=== PATIENT | male | born 1980 | race African-American/Black ===

== ENCOUNTER 2019-02-03 09:51 | Inpatient (IN) | payer OTHER ==
[2019-02-03] MEDS ORDERED: SODIUM CHLORIDE 1,000 ML IV STA ×2 (10:37→11:49)
[2019-02-03] MEDS ORDERED: KETOROLAC TROMETHAMINE 30 MG/1 ML VIAL IVPUSH ONE (10:37)
[2019-02-03] MEDS ORDERED: PANTOPRAZOLE SODIUM 40 MG in SODIUM CHLORIDE 100 ML IVPB ONE (10:40)
--- NOTE | 2019-02-03 10:51 | PDOC ---
*Physical Exam - Vital Signs Last Vital Signs Temp Pulse Resp BP Pulse Ox 98.2 F 93 H 16 127/80 98 02/03/19 09:53 02/03/19 09:53 02/03/19 09:53 02/03/19 09:53 02/03/19 09:53 ED Treatment Course - LABORATORY CBC & Chemistry Diagram: 02/04/19 05:53 02/04/19 05:53 Medical Decision Making - Critical Care Time Total Critical Care Time (minutes): 120 Critical Care Statement: The care of this patient involved high complexity decision making to prevent further life threatening deterioration of the patient 's condition and/or to evaluate & treat vital organ system(s) failure or risk of failure. - Medical Decision Making 02/03/19 10:51 Mr. Power is a 38 yo M h/o pancreatitis and diabetes (not compliant with medications) who presents to ED for evaluation of upper abdominal pain which she states has had for about a week. Patient also states has been drinking alcohol socially and has had no change in diet. No fevers or chills No vomiting EKG - NSR rate of 91 bpm, RAD, RBBB, no st elevation or depression Pt seen by Midlevel Provider under my direct supervision Pt interviewed and examined Pt is overall well appearing, Ancillary studies reviewed I agree with plan as outlined by Midlevel Provider 02/03/19 13:00 Laboratory Tests 02/03/19 02/03/19 10:55 10:55 WBC 10.5 H Hgb 15.1 Hct 35.7 Plt Count 282 Sodium 128 L Potassium 4.1 Chloride 93 L BUN 8.9 Creatinine 1.1 Total Amylase 136 H Lipase 519 H 02/03/19 13:01 Added on Lipid panel and Triglycerides 02/03/19 13:03 02/03/19 16:19 Laboratory Tests 02/03/19 12:30 Triglycerides > 4000 H Will need to go to the ICU Case reviewed with ICU resident Will start Insulin drip Consult Heme for possible plasmaphresis clinical impression: Hypertriglyceridemia, initial presentation Pancreatitis, initial presentation DKA/hyperglycemia, initial presentation Discharge - Discharge Information Problems reviewed: Yes Clinical Impression/Diagnosis: Elevated triglycerides with high cholesterol - Follow up/Referral - Patient Discharge Instructions - Post Discharge Activity
[2019-02-03] MEDS ORDERED: KETOROLAC TROMETHAMINE 30 MG/1 ML VIAL ONE (11:01)
[2019-02-03] MEDS ORDERED: PANTOPRAZOLE SODIUM 40 MG/100 ML BAG IVPB ONE (11:01)
[2019-02-03 11:42] LABS: ALK PHOS 119 U/L (45-117); AMYLASE 136 U/L (25-115); ANION GAP 14 MMOL/L (8-16); BILIRUBIN,TOTAL 1.9 mg/dL (0.2-1); BLOOD UREA NITROGEN 8.9 mg/dL (7-18); CHLORIDE 93 mmol/L (98-107); CO2 21 mmol/L (21-32); CREATININE 1.1 mg/dL (0.55-1.3); LIPASE 519 U/L (73-393); MAGNESIUM 1.9 mg/dL (1.8-2.4); POTASSIUM 4.1 mmol/L (3.5-5.1); SODIUM 128 mmol/L (136-145); TOT PROT 7.9 g/dl (6.4-8.2)
[2019-02-03 11:47] LABS: HEMATOCRIT 35.7 % (35.4-49); HEMOGLOBIN 15.1 GM/dL (11.7-16.9); MCH 30.8 pg (25.7-33.7); MCHC 42.3 g/dl (32.0-35.9); MEAN CELL VOLUME 72.9 fl (80-96); MEAN PLT VOLUME 8.6 fl (7.5-11.1); RDW 17.1 % (11.9-15.9); WHITE BLOOD COUNT 10.5 K/mm3 (4.0-10.0)
--- NOTE | 2019-02-03 11:57 | PDOC ---
History of Present Illness - General Chief Complaint: Pain, Acute Stated Complaint: PAIN Time Seen by Provider: 02/03/19 10:33 History Source: Patient Exam Limitations: No Limitations - History of Present Illness Travel History: No Initial Comments: 02/03/19 11:45 38-year-old male with history of pancreatitis and diabetes presents to ED for evaluation of upper abdominal pain which she states has had for about a week. Patient states similar symptoms in the past secondary to pancreatitis. Patient states has not had any of his diabetic meds for the past 2 weeks since he ran out.Patient also states has been drinking alcohol socially and has had no change in diet. Patient denies fever, chills, nausea, back pain, change in bowel pattern, change in urine pattern. Quality: reports: moderate, stabbing Abdominal Pain Onset Location: reports: epigastric Pain Radiation: reports: RUQ Activities at Onset: reports: none Aggravating Factors: improves with: None Alleviating Factors: improves with: None Past History - Travel Traveled outside of the country in the last 30 days: No Close contact w/someone who was outside of country & ill: No - Past Medical History Allergies/Adverse Reactions: Allergies Allergy/AdvReac Type Severity Reaction Status Date / Time No Known Allergies Allergy Verified 02/03/19 09:56 COPD: No Diabetes: Yes GI Disorders: Yes (PANCREATITIS) - Psycho Social/Smoking Cessation Hx Smoking History: Current every day smoker Number of Cigarettes Smoked Daily: 20 Information on smoking cessation initiated: No Hx Alcohol Use: No Drug/Substance Use Hx: No Patient Lives Alone: No Lives with/in: spouse/SO Abd/GI Specific PMHX - Complaint Specific PMHX GERD: No Pancreatitis: Yes Review of Systems - Review of Systems Able to Perform ROS?: Yes Constitutional: No: Symptoms Reported HEENTM: No: Symptoms Reported Respiratory: No: Symptoms reported Cardiac (ROS): No: Symptoms Reported ABD/GI: Yes: Abdominal cramping. No: Nausea, Poor Appetite, Poor Fluid Intake, Vomiting : No: Symptoms Reported Musculoskeletal: No: Symptoms Reported Integumentary: No: Symptoms Reported Neurological: No: Symptoms reported Endocrine: No: Symptoms Reported Hematologic/Lymphatic: No: Symptoms Reported *Physical Exam - Vital Signs Last Vital Signs Temp Pulse Resp BP Pulse Ox 98.2 F 93 H 16 127/80 98 02/03/19 09:53 02/03/19 09:53 02/03/19 09:53 02/03/19 09:53 02/03/19 09:53 - Physical Exam General Appearance: Yes: Nourished, Appropriately Dressed. No: Apparent Distress HEENT: positive: EOMI, RUIZ, TMs Normal, Pharynx Normal (dry). negative: Pale Conjunctivae Neck: positive: Supple Respiratory/Chest: positive: Lungs Clear, Normal Breath Sounds. negative: Respiratory Distress, Accessory Muscle Use Cardiovascular: positive: Regular Rhythm, Regular Rate. negative: Murmur Gastrointestinal/Abdominal: positive: Soft, Tenderness (Epigastric/ right epigastric) Extremity: positive: Normal Inspection Integumentary: positive: Normal Color, Warm, Moist Neurologic: positive: Motor Strength 5/5 (Ambulatory) Heart Score/ECG Review - ECG Intrepretation Rhythm: Regular Rhythm (rate 69, no st elevation/depression) ED Treatment Course - LABORATORY CBC & Chemistry Diagram: 02/03/19 10:55 02/03/19 10:55 - ADDITIONAL ORDERS Additional order review: Laboratory Results 02/03/19 10:55 Sodium 128 L Potassium 4.1 Chloride 93 L Carbon Dioxide 21 Anion Gap 14 BUN 8.9 Creatinine 1.1 Est GFR (CKD-EPI)AfAm 99.57 Est GFR (CKD-EPI)NonAf 85.91 Magnesium 1.9 Total Bilirubin 1.9 H Alkaline Phosphatase 119 H Total Protein 7.9 Albumin 3.0 L Total Amylase 136 H Lipase 519 H - RADIOLOGY Radiology Studies Ordered: Category Date Time Status ABDOMEN & PELVIS CT W/O CONTR [CT] Stat CT Scan 02/03/19 11:50 Ordered - Medications Given in the ED: ED Medications Discontinued Medications Generic Name Dose Route Start Last Admin Trade Name Freq PRN Reason Stop Dose Admin Sodium Chloride 1,000 mls @ 1,000 mls/hr 02/03/19 10:37 02/03/19 11:19 Normal Saline - IV 02/03/19 11:36 1,000 mls/hr ASDIR STA Administration Pantoprazole Sodium 40 mg/ 100 mls @ 200 mls/hr 02/03/19 10:40 02/03/19 11:20 Sodium Chloride IVPB 02/03/19 11:09 200 mls/hr ONCE ONE Administration Ketorolac Tromethamine 30 mg 02/03/19 10:37 02/03/19 11:19 Toradol Injection - IVPUSH 02/03/19 10:38 30 mg ONCE ONE Administration Medical Decision Making - Medical Decision Making 02/03/19 11:48 . Patient with history of pancreatitis and diabetes but has not taken his meds in over 2 weeks after running out no other complaints Exam: Epigastric and right upper quadrant tenderness vital signs stable Plan: Labs, urine, IV fluids and will consider imaging 02/03/19 12:49 Laboratory Tests 02/03/19 02/03/19 10:55 10:55 WBC 10.5 H Hgb 15.1 Hct 35.7 MCV 72.9 L MCHC 42.3 H RDW 17.1 H Sodium 128 L Potassium 4.1 Chloride 93 L Carbon Dioxide 21 Anion Gap 14 BUN 8.9 Creatinine 1.1 Random Glucose 465 H* Calcium 5.7 L* Total Bilirubin 1.9 H Alkaline Phosphatase 119 H Albumin 3.0 L Lipase 519 H Patient order for abdominal CT along with second liter of fluid acetone VBG and lipid panel was added along with LDH. 02/03/19 13:07 CT shows enlarged pancreas with mild peripancreatic inflammation consistent with acute pancreatitis. Hepatomegaly with diffuse fatty infiltration of liver is noted. No additional evidence of acute pathology is seen within the abdomen or pelvis. 02/03/19 13:57 Laboratory Tests 02/03/19 12:30 LD Total 160 Triglycerides > 4000 H Cholesterol 342 H Total LDL Cholesterol 135 H HDL Cholesterol 32 L Total Amylase 172 H 02/03/19 14:23 Pt awaiting bgm and insulin gtt. 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 Monge and will be admitted to ICU. BGM 506. Will initiate insulin drip Discharge - Discharge Information Problems reviewed: Yes Clinical Impression/Diagnosis: Elevated triglycerides with high cholesterol - Admission Yes - Follow up/Referral Referrals: Artie Greene MD [Primary Care Provider] - - Patient Discharge Instructions - Post Discharge Activity
[2019-02-03 11:58] LABS: CALCIUM 5.7 mg/dL (8.5-10.1); GLUCOSE,RANDOM 465 mg/dL (74-106)
[2019-02-03 13:04] LABS: VENOUS PC02 31.3 mmHg (38-52); VENOUS PH 7.38 (7.31-7.41); VENOUS PO2 60.1 mmHg (28-48)
[2019-02-03 13:08] LABS: ANISOCYTOSIS 1+
[2019-02-03 13:50] LABS: AMYLASE 172 U/L (25-115); CHOLESTEROL 342 mg/dL (50-200); HDL CHOLESTEROL 32 mg/dL (40-60); LDH 160 U/L (87-246); LDL CHOLESTEROL (ONLY SJRH) 135 mg/dL (5-100); TRIGLYCERIDES > 4000 mg/dL (0-150)
[2019-02-03 13:55] LABS: PLATELET ESTIMATE ADEQUATE
[2019-02-03] MEDS ORDERED: INSULIN REGULAR 100 UNITS in SODIUM CHLORIDE 99 ML IVPB SCH (14:30)
--- NOTE | 2019-02-03 14:52 | CONSULT ---
Consultation: REQUESTING PROVIDER: Dr. Glez (ED) CONSULT REQUEST: We have been asked to medically evaluate this patient for hypertriglyceride pancreatitis. HISTORY OF PRESENT ILLNESS: 38 y/o M with PMH NIDDM, past pancreatitis (2004), who presents for abdominal pain over the last three weeks, which acutely worsened over the last day. Describes as 7/10 pain in his mid-epigastrium, with local radiation and a "pulling sensation". Is a/w nausea and emesis. Last night he had two episodes of NBNB emesis. Of note, pt stopped taking his DM meds two weeks ago, since he ran out and was unable to go to the pharmacy. Usually takes glipizide and metformin. Pt drinks tequila frequently on weekends. CTAP reveals acute pancreatitis, without necrosis, and pt with triglyceride > 4000. Lipase ~500. During this time, endorses GOMEZ and chills. Otherwise, without chest pain or pressure or changes in urinary or bowel function. In ED, pt received 3L IVF, toradol and protonix. ICU consulted for management of hypertriglyceride pancreatitis. REVIEW OF SYSTEMS: +abdominal pain +nausea PHYSICAL EXAMINATION Vital Signs - 24 hr 02/03/19 02/03/19 09:53 14:44 Temperature 98.2 F Pulse Rate 93 H Pulse Rate [ 88 Right Radial] Respiratory 16 18 Rate Blood Pressure 127/80 Blood Pressure 136/84 [Left Arm] O2 Sat by Pulse 98 97 Oximetry (%) GENERAL: Awake, alert, and fully oriented, in no acute distress. HEAD: Normal with no signs of trauma. EYES: Pupils equal, round and reactive to light, extraocular movements intact, sclera anicteric, conjunctiva clear. EARS, NOSE, THROAT: Ears normal, nares patent, oropharynx clear without exudates. Moist mucous membranes. NECK: Normal range of motion, supple LUNGS: Breath sounds equal, clear to auscultation bilaterally. No wheezes, and no crackles. HEART: Regular rate and rhythm, normal S1 and S2 without murmur, rub or gallop. ABDOMEN: Soft, TTP in epigastrium, not distended, normoactive bowel sounds LOWER EXTREMITIES: 2+ pt pulses, warm, well-perfused. No calf tenderness. No peripheral edema. NEUROLOGICAL: Cranial nerves II-XII intact. Normal speech SKIN: Warm, dry. +tattoos Laboratory Results 02/03/19 02/03/19 02/03/19 10:55 10:55 12:30 WBC 10.5 H Hgb 15.1 Hct 35.7 Plt Count Video News Editor VBG pH 7.38 POC VBG pCO2 31.3 L POC VBG pO2 60.1 H VBG HCO3 17.8 L VBG O2 Sat (Maritza) 89.2 H VBG Base Excess -6.0 L Sodium 128 L Potassium 4.1 Chloride 93 L Carbon Dioxide 21 BUN 8.9 Creatinine 1.1 Random Glucose 465 H* Calcium 5.7 L* Triglycerides Cholesterol Total LDL Cholesterol HDL Cholesterol Total Amylase 02/03/19 12:30 Random Glucose Calcium Triglycerides > 4000 H Cholesterol 342 H Total LDL Cholesterol 135 H HDL Cholesterol 32 L Total Amylase 172 H ASSESSMENT/PLAN: 38 y/o M with H NIDDM, past pancreatitis (2004), who presents for abdominal pain over the last three weeks, which acutely worsened over the last day. ICU consulted for management of hypertriglyceride pancreatitis. 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 vigorous IVF LR 250 cc/hr -c/w insulin gtt until triglycerides < 500 -at this time, apheresis not recommended -f/u lactic, calcium, albumin as low levels indicate poor prognostic fx -if elevated LFTs, will need MRI -GI on board: Dr. Alverto Moya -Endo consulted: Dr. Angulo #Endocrine NIDDM -f/u a1c -started on insulin gtt for hypertriglycerides -does not have DKA at this time ; HCO3>18, no AG, VBG pH 7.35. -FS q1h -Endocrine consult: Dr. Angulo #Renal Hyponatremia likely 2/2 hypertriglycerides, hyperglycemia -c/t monitor -on IVF ; should improve w/tx of above #F/E/N IV LR 250 cc/hr continue to follow lytes NPO #PPX DVT: hep 5k sq tid #Dispo admitted to ICU Dispo: We will continue to follow the patient. Thank you for this consultative opportunity. Visit type - Emergency Visit Emergency Visit: Yes ED Registration Date: 02/03/19 Care time: The patient presented to the Emergency Department on the above date and was hospitalized for further evaluation of their emergent condition. - New Patient This patient is new to me today: Yes Date on this admission: 02/03/19 - Critical Care Critical Care patient: Yes Total Critical Care Time (in minutes): 45 Critical Care Statement: The care of this patient involved high complexity decision making to prevent further life threatening deterioration of the patient 's condition and/or to evaluate & treat vital organ system(s) failure or risk of failure.
[2019-02-03] MEDS ORDERED: LACTATED RINGERS SOLUTION 1,000 ML/1,000 ML INFUS.BAG IV SCH ×2 (15:00→17:28)
[2019-02-03] MEDS ORDERED: HYDROmorphone HCL CARPU-JECT 2 MG/1 ML DISP.SYRIN IVPUSH ONE (15:35)
[2019-02-03] MEDS ORDERED: HYDROmorphone HCl 2 MG/ML VIAL ONE (15:41)
--- NOTE | 2019-02-03 16:00 | CONSULT ---
Consult Consult Specialty:: Hematology and oncology Reason for Consultation:: Pancreatitis w/ hypertriglyceridemia - History of Present Illness Chief Complaint: Abdominal pain History of Present Illness: The patient is a 38 yo m w/ PMH pancreatitis in the past and diabetes who comes into the ER c/o a 1 week history of epigastric abdominal pain. The patient states that he has not taken his DM medication for the last week since he ran out and was not able to go to the doctor to get a refill. In the emergency department, the patient was found to be hemodynamically stable with a hypertriglyceridemia >4000 and a lipase of ~500. A CT of the abdomen and pelvis showed an acute pancreatitis. Hematology was consulted for evaluation for apharesis. On interview, the patient was well appearing and continues to complain of abdominal pain. ICU team was present at the time of evaluation. Patient endorses smoking history as well as a drinking history of approx. 2-3 drinks on the weekend. - Alcohol/Substance Use Hx Alcohol Use: No - Smoking History Smoking history: Current every day smoker Aproximately how many cigarettes per day: 20 Home Medications - Allergies Allergies/Adverse Reactions: Allergies Allergy/AdvReac Type Severity Reaction Status Date / Time No Known Allergies Allergy Verified 02/03/19 09:56 Review of Systems - Review of Systems Constitutional: denies: Chills, Diaphoresis, Fever Cardiovascular: denies: Chest Pain, Palpitations, Shortness of Breath Respiratory: denies: Cough, SOB, SOB on Exertion Gastrointestinal: reports: Nausea, Vomiting. denies: Abdominal Pain, Diarrhea, Dysphagia, Melena Hematology/Lymphatic: denies: Easily Bruised, Excessive Bleeding, Swollen Glands Physical Exam Vital Signs: Vital Signs Temperature 98.2 F 02/03/19 09:53 Pulse Rate 88 02/03/19 14:44 Respiratory Rate 18 02/03/19 14:44 Blood Pressure 136/84 02/03/19 14:44 O2 Sat by Pulse Oximetry (%) 97 02/03/19 14:44 Constitutional: Yes: Well Nourished, No Distress, Calm Cardiovascular: Yes: Regular Rate and Rhythm, S1, S2. No: Gallop, Murmur, Rub Respiratory: Yes: Regular, CTA Bilaterally Gastrointestinal: Yes: Normal Bowel Sounds, Soft, Tenderness, Epigastrium Edema: No Labs: CBC, BMP 02/03/19 10:55 02/03/19 10:55 Imaging - Results Cat Scan: Report Reviewed, Image Reviewed Assessment/Plan The patient is a 38 yo m w/ PMH pancreatitis in the past and diabetes who comes into the ER c/o a 1 week history of epigastric abdominal pain. The patient was found to have a pancreatitis with a hypertriglyceridemia. #Pancreatitis likely 2/2 hypertriglyceridemia -TAG >4000 -patient hemodynamically stable at this time -observe TAG over time -decision to initiate apharesis to be made by GI and endocrine. -Plt noted to clump in CBC tube; will redraw in blue to tube -f/u lactic acid.
[2019-02-03] MEDS ORDERED: NICOTINE 7 MG/24 HOURS TOPICAL PATCH TD ONE (16:30)
--- NOTE | 2019-02-03 16:37 | CON.GI ---
Consult Consult Specialty:: GI Referred by:: Hospitalist Service Reason for Consultation:: Pancreatitis - History of Present Illness Chief Complaint: Abdominal pain History of Present Illness: 38M admitted through [facility] Er for evaluation of abdominal pain. He describes waxing and waning upper abdominal pain over the last few weeks that remined him of the pain he had during an episode of pancreatitis in 2008. He states that during this time he ate less at times due to the pain and that helped. two days ago he had about 5 shots of tequila and drinks tequila on most weekends. he also smokes cigarettes. Last night the pain became constant and more intense , prompting his ER visit this morning. Mild leukocytosis was noted on admission labs, triglycerides were 4000, blood glucose was over 400 and CMP was grosssly hemolyzed and therefore uninterpretable. Reepat blood fglucose noted at 500. CT scan performed without contrast as opposed to an abdominal US that would have been reasonable, revealed enlarged fatty liver and changes consistent with pancreatitis. The study was limited due to no IV contrast. He received 1 Liter of NS n the ER. There is no family history of pancreatitis. he is on atorvastatin but denies a history of hyperlipidemia. - History Source History Provided By: Patient, Medical Record Limitations to Obtaining History: No Limitations - Past Medical History Hepatobiliary: Yes: Other (pancreatitis 2008 (believes that he was told this was alcohol induced)) Endocrine: Yes: Diabetes Mellitus (DM II or oral agents) - Past Surgical History Past Surgical History: Yes: Appendectomy - Alcohol/Substance Use Hx Alcohol Use: Yes (tequila shots on weekends and two days ago) History of Substance Use: reports: None - Smoking History Smoking history: Current every day smoker Aproximately how many cigarettes per day: 20 - Social History Usual Living Arrangement: Alone ADL: Independent Occupation: Works in construction Place of : [facility] History of Recent Travel: No Home Medications - Allergies Allergies/Adverse Reactions: Allergies Allergy/AdvReac Type Severity Reaction Status Date / Time No Known Allergies Allergy Verified 02/03/19 09:56 Family Medical History Other Family History: Mother: Alive: Dm II and CAD. Father: Alive: Throat cancer (smoker). 28 1/2 siblings: healthy as far as he knows. 2 brothers: 1 from ? blood dyscrasia. 3 sister: 1 from "heart murmur". No family history of pancreatitis, colorectal cancer or other GI mlaignancy Review of Systems - Review of Systems Constitutional: denies: Unintentional Wgt. Loss Cardiovascular: denies: Chest Pain Respiratory: denies: Cough Gastrointestinal: reports: Abdominal Pain, Nausea. denies: Diarrhea, Melena, Rectal Bleeding, Vomiting Physical Exam-GI Vital Signs: Vital Signs Temperature 98.2 F 02/03/19 09:53 Pulse Rate 88 02/03/19 14:44 Respiratory Rate 18 02/03/19 14:44 Blood Pressure 136/84 02/03/19 14:44 O2 Sat by Pulse Oximetry (%) 97 02/03/19 14:44 Constitutional: Yes: Calm Eyes: No: Sclera Icterus Cardiovascular: Yes: Regular Rate and Rhythm. No: Murmur Respiratory: Yes: CTA Bilaterally Gastrointestinal Inspection: Yes: Scars (RLQ scar) ...Auscultate: Yes: Normoactive Bowel Sounds ...Palpate: Yes: Guarding (voluntary guarding upper abdomen), Soft, Tenderness ( moderate TTP in the mid abdomen and epigastrium) ...Percussion: No: Tympanitic Edema: No (No LE edema) Neurological: Yes: Alert Labs: CBC, BMP 02/03/19 10:55 02/03/19 10:55 Problem List - Problems (1) Pancreatitis Assessment/Plan: Triglycerides > 4000. Usually with levels above 1000, hypertriglyceridemia needs to be considered as potential trigger. I suspect that his alcohol use plays a large role as well, either directly contributing to the pancreatitis or precipitating the rise in the triglyceride. Also with DKA Advise: Endocrine evaluation NPO except meds Agggressive IV hydration. Continue NS @ 250cc/hr Repeat hepatic panel as initial was hemolyzed. Unable to interpret at this time as it is hemolyzed If rising liver chemistries suggestive of obstructive process, will need MRI Abdominal US Glycemic control per primary team Problems reviewed: Yes Code(s): K85.90 - ACUTE PANCREATITIS WITHOUT NECROSIS OR INFECTION, UNSP
[2019-02-03] MEDS ORDERED: CALCIUM GLUCONATE 10% - 1,000 MG/10 ML VIAL IVPB ONE ×2 (17:36→23:30)
[2019-02-03] MEDS ORDERED: CALCIUM GLUCONATE 10% - 1,000 MG/10 ML VIAL ONE (18:56)
[2019-02-03] MEDS ORDERED: MORPHINE SULFATE 2 MG/ML VIAL IVPUSH PRN (19:59)
[2019-02-03] MEDS ORDERED: INFUS IVPB SCH ×3 (20:00→21:29)
[2019-02-03] MEDS ORDERED: LACTATED RINGERS IVPB SCH ×3 (20:00→21:29)
[2019-02-03] MEDS ORDERED: POTASSIUM CHLORIDE IVPB SCH ×3 (20:00→21:29)
[2019-02-03] MEDS ORDERED: MORPHINE SULFATE 2 MG/ML VIAL ONE (20:02)
--- NOTE | 2019-02-03 21:28 | PN ---
Teaching Attending Note Name of Resident: Kristofer Blunt ATTENDING PHYSICIAN STATEMENT I saw and evaluated the patient. I reviewed the resident's note and discussed the case with the resident. I agree with the resident's findings and plan as documented. ASSESSMENT AND PLAN: 38 yo m w/ PMH alcoholism, pancreatitis in the past and diabetes who comes into the ER c/o a 1 week history of epigastric abdominal pain. The patient was found to have a pancreatitis with hypertriglyceridemia of 4000 Clinically better with iv fluids Started insulin drip for hypertriglyceridemia/DM Follow endocrine/ gi recommendations Depending on clinical course , may need pheresis if he develops worrisome clinical features
[2019-02-03] MEDS ORDERED: D5-1/2NS+20 MEQ KCL - 20 MEQ/1,000 ML INFUS.BAG IV SCH ×2 (21:30)
--- NOTE | 2019-02-03 22:14 | EKG ---
Test Reason : Blood Pressure : / mmHG Vent. Rate : 091 BPM Atrial Rate : 091 BPM P-R Int : 150 ms QRS Dur : 126 ms QT Int : 360 ms P-R-T Axes : 046 100 031 degrees QTc Int : 442 ms POOR DATA QUALITY, INTERPRETATION MAY BE ADVERSELY AFFECTED NORMAL SINUS RHYTHM RIGHTWARD AXIS NON-SPECIFIC INTRA-VENTRICULAR CONDUCTION BLOCK ABNORMAL ECG NO PREVIOUS ECGS AVAILABLE Confirmed by MD YEMI, JULIEN ([id number]) on 02/03/2019 10:13:34 PM Referred By: Confirmed By:JULIEN BRAGG MD
[2019-02-03] MEDS: D5-LR+20 MEQ KCL - 20 MEQ/1,000 ML INFUS.BAG IV SCH (22:24)
[2019-02-03] MEDS: HEPARIN NA (PORCINE) 5,000 UNITS/ML 1ML VIAL SQ SCH (22:25)
[2019-02-03] MEDS: CHLORHEXIDINE GLUCONATE 4% CLEANSER FOR DECOLONIZATION TP SCH (22:25)
[2019-02-03] MEDS: MUPIROCIN 2% TOPICAL OINTMENT FOR DECOLONIZATION NS SCH (22:25)
[2019-02-03] MEDS: ACETAMINOPHEN 1000 MG/100 ML VIAL (NON FORMULARY) IVPB PRN (22:45)
[2019-02-03 23:25] LABS: ALBUMIN 2.7 g/dl (3.4-5.0); BILIRUBIN,DIRECT 0.1 mg/dL (0.0-0.2); BILIRUBIN,TOTAL 0.9 mg/dL (0.2-1); BLOOD UREA NITROGEN 8.2 mg/dL (7-18); TOT PROT 6.7 g/dl (6.4-8.2)
--- NOTE | 2019-02-03 23:28 | HP ---
Admitting History and Physical - Past Medical History Hepatobiliary: Yes: Other (pancreatitis 2008 (believes that he was told this was alcohol induced)) Endocrine: Yes: Diabetes Mellitus (DM II or oral agents) - Past Surgical History Past Surgical History: Yes: Appendectomy - Smoking History Smoking history: Current every day smoker Aproximately how many cigarettes per day: 20 - Alcohol/Substance Use Hx Alcohol Use: Yes (tequila shots on weekends and two days ago) History of Substance Use: reports: None - Social History ADL: Independent Occupation: Works in construction History of Recent Travel: No Home Medications - Allergies Allergies/Adverse Reactions: Allergies Allergy/AdvReac Type Severity Reaction Status Date / Time No Known Allergies Allergy Verified 02/03/19 09:56 Physical Examination Vital Signs: Vital Signs Temperature 98.4 F 02/03/19 19:25 Pulse Rate 93 H 02/03/19 19:25 Respiratory Rate 19 02/03/19 19:25 Blood Pressure 131/83 02/03/19 19:25 O2 Sat by Pulse Oximetry (%) 97 02/03/19 19:25 Labs: CBC, BMP 02/03/19 10:55 02/03/19 21:23
[2019-02-03] MEDS: INSULIN REGULAR 100 UNITS in SODIUM CHLORIDE 99 ML IVPB SCH (23:50)
[2019-02-04] MEDS: MORPHINE SULFATE 2 MG/ML VIAL IVPUSH PRN ×2 (00:43→06:25)
[2019-02-04 02:49] LABS: BLOOD UREA NITROGEN 8.4 mg/dL (7-18); CALCIUM 7.2 mg/dL (8.5-10.1); CREATININE 0.8 mg/dL (0.55-1.3); POTASSIUM 3.5 mmol/L (3.5-5.1)
[2019-02-04 03:25] VITALS: BMI 29.9
[2019-02-04] MEDS: D5-LR+20 MEQ KCL - 20 MEQ/1,000 ML INFUS.BAG IV SCH ×2 (04:43→13:55)
[2019-02-04] MEDS: ACETAMINOPHEN 1000 MG/100 ML VIAL (NON FORMULARY) IVPB PRN (04:45)
[2019-02-04] MEDS ORDERED: CALCIUM GLUCONATE 10% - 1,000 MG/10 ML VIAL IVPB ONE (06:00)
[2019-02-04] MEDS: KCL 10 MEQ IVPB 10 MEQ/100 ML INFUS.BAG IVPB SCH ×3 (06:26→09:36)
[2019-02-04] MEDS: HEPARIN NA (PORCINE) 5,000 UNITS/ML 1ML VIAL SQ SCH ×3 (06:27→22:42)
[2019-02-04 06:56] LABS: BASO % 2.1 % (0-2.0); EOS % 2.1 % (0-4.5); HEMATOCRIT 29.7 % (35.4-49); HEMOGLOBIN 10.7 GM/dL (11.7-16.9); LYMPH % 13.3 % (8-40); MEAN CELL VOLUME 72.3 fl (80-96); MEAN PLT VOLUME 8.5 fl (7.5-11.1); MONO % 7.2 % (3.8-10.2); NEUT % 75.3 % (42.8-82.8); PLATELET COUNT 302 K/MM3 (134-434); RBC 4.11 M/mm3 (4.00-5.60); RDW 17.1 % (11.9-15.9); WHITE BLOOD COUNT 9.3 K/mm3 (4.0-10.0)
[2019-02-04 07:32] LABS: ALBUMIN 2.4 g/dl (3.4-5.0); ALK PHOS 83 U/L (45-117); ANION GAP 11 MMOL/L (8-16); BILIRUBIN,TOTAL 0.6 mg/dL (0.2-1); BLOOD UREA NITROGEN 7.6 mg/dL (7-18); CALCIUM 7.7 mg/dL (8.5-10.1); CHLORIDE 106 mmol/L (98-107); CO2 22 mmol/L (21-32); CREATININE 0.6 mg/dL (0.55-1.3); GLUCOSE,RANDOM 194 mg/dL (74-106); MAGNESIUM 1.7 mg/dL (1.8-2.4); PHOSPHOROUS 3.8 mg/dL (2.5-4.9); POTASSIUM 3.8 mmol/L (3.5-5.1); SODIUM 138 mmol/L (136-145); TOT PROT 5.8 g/dl (6.4-8.2)
[2019-02-04] MEDS ORDERED: HYDROmorphone HCl 2 MG/ML VIAL IVPUSH STA (08:15)
--- NOTE | 2019-02-04 08:20 | CONSULT ---
Consult Consult Specialty:: PULM/CCM Referred by:: Dr. Yoko Monge Reason for Consultation:: Pancreatitis - History of Present Illness Chief Complaint: Abd Pain History of Present Illness: Mr. Power is a 38 y/o man DMII, Et-OH, & pancreatitis in the past who presents to the ED c/o epigastric abd pain X 1Wk. W/u reveals recurrent pancreatitis w/ hypertriglyceridemia >4000. TAG coming down nicely now w/ IVFs & insulin gtt (3734). - History Source History Provided By: Patient, Medical Record Limitations to Obtaining History: No Limitations - Past Medical History Hepatobiliary: Yes: Other (pancreatitis 2008 (believes that he was told this was alcohol induced)) Endocrine: Yes: Diabetes Mellitus (DM II or oral agents), Other (Hx/o Pancreatitis) - Past Surgical History Past Surgical History: Yes: Appendectomy - Alcohol/Substance Use Hx Alcohol Use: Yes (tequila shots on weekends and two days ago) History of Substance Use: reports: None - Smoking History Smoking history: Current every day smoker Have you smoked in the past 12 months: Yes Aproximately how many cigarettes per day: 20 - Social History Usual Living Arrangement: Alone ADL: Independent Occupation: Works in construction History of Recent Travel: No Home Medications - Allergies Allergies/Adverse Reactions: Allergies Allergy/AdvReac Type Severity Reaction Status Date / Time No Known Allergies Allergy Verified 02/03/19 09:56 Family Medical History Family History: Denies Review of Systems - Review of Systems Constitutional: reports: No Symptoms Eyes: reports: No Symptoms HENT: reports: No Symptoms Neck: reports: No Symptoms Cardiovascular: reports: No Symptoms Respiratory: reports: No Symptoms Gastrointestinal: reports: Abdominal Pain Breasts: reports: No Symptoms Reported Musculoskeletal: reports: No Symptoms Integumentary: reports: No Symptoms Neurological: reports: No Symptoms Endocrine: reports: No Symptoms Hematology/Lymphatic: reports: No Symptoms Psychiatric: reports: No Symptoms Pain Intensity: 10 Physical Exam Vital Signs: Vital Signs Temperature 98 F 02/04/19 06:00 Pulse Rate 78 02/04/19 06:00 Respiratory Rate 28 H 02/04/19 06:00 Blood Pressure 116/75 02/04/19 06:00 O2 Sat by Pulse Oximetry (%) 98 02/04/19 03:34 Intake & Output 10/16/02/02/19 02/03/19 02/04/19 23:59 23:59 23:59 23:59 Intake Total 1229 Output Total 400 600 Balance 829 -600 Weight 92.079 kg Constitutional: Yes: Well Nourished, No Distress, Calm Eyes: Yes: WNL, Conjunctiva Clear, EOM Intact HENT: Yes: WNL, Atraumatic, Normocephalic Neck: Yes: WNL, Supple, Trachea Midline Cardiovascular: Yes: WNL, Regular Rate and Rhythm Respiratory: Yes: WNL, Regular, CTA Bilaterally Gastrointestinal: Yes: WNL, Normal Bowel Sounds, Soft ...Rectal Exam: Yes: Deferred Renal/: Yes: WNL Breast(s): Yes: WNL Musculoskeletal: Yes: WNL Extremities: Yes: WNL Edema: No Peripheral Pulses WNL: Yes Integumentary: Yes: WNL Neurological: Yes: WNL, Alert, Oriented ...Motor Strength: WNL Psychiatric: Yes: WNL, Alert, Oriented Labs: CBC, BMP 02/04/19 05:53 02/04/19 05:53 Imaging - Results Cat Scan: Report Reviewed (CTAP 02/03: 1. Enlarged pancreas with mild peripancreatic inflammation consistent with acute pancreatitis. 2. Hepatomegaly with diffuse fatty infiltration of the liver. 3. No additional evidence of acute pathology within the abdomen or pelvis. Limited study as described above.) Ultrasound: Report Reviewed ([facility] 02/03: No sonographic evidence of cholelithiasis or acute cholecystitis. There is no definite biliary tract dilatation. Diffuse pancreatic swelling is seen possibly on the basis of acute pancreatitis. Within or adjacent to the pancreatic head posteriorly a nonspecific complex 2 cm spherical structure is noted as discussed above.) Problem List - Problems (1) Elevated triglycerides with high cholesterol Code(s): E78.2 - MIXED HYPERLIPIDEMIA (2) Pancreatitis Code(s): K85.90 - ACUTE PANCREATITIS WITHOUT NECROSIS OR INFECTION, UNSP Assessment/Plan ASSESS: pancreatitis hypertriglyceridemia DM Et-OH PLAN: -NPO except meds -IVFs -Insulin gtt -FS q 1hr -Trend TAG -Consider apheresis -Trend LFTs -ENDO Ortiz, ACNP-BC [facility] ICU PULM/CCM [id number]
[2019-02-04 12:11] LABS: EPI CELLS 1.1 /HPF (0-5/HPF); HYALINE CASTS 6 /lpf (0-8); URINE APPEARANCE CLEAR; URINE BACTERIA 0.5 /hpf (NEGATIVE); URINE BILIRUBIN NEGATIVE (NEGATIVE); URINE COLOR YELLOW; URINE GLUCOSE (UA) 2+ (NEGATIVE); URINE KETONE 2+ (NEGATIVE); URINE LEUK ESTERASE NEGATIVE (NEGATIVE); URINE NITRITE NEGATIVE (NEGATIVE); URINE PROTEIN 1+ (NEGATIVE); URINE RBC 1 /hpf (0-4); URINE UROBILINOGEN 0.2 mg/dL (0.2-1.0); URINE WBC 1 /hpf (0-5)
[2019-02-04] MEDS: MUPIROCIN 2% TOPICAL OINTMENT FOR DECOLONIZATION NS SCH ×2 (12:34→22:43)
--- NOTE | 2019-02-04 12:42 | PN ---
Progress Note (short form) - Note Progress Note: Seen in follow up. No events overnight. Pain controlled. Inpatient meds reviewed: Current Medications Acetaminophen (Ofirmev Injection -) 1,000 mg IVPB Q6H PRN PRN Reason: PAIN LEVEL 4 - 6 Last Admin: 02/04/19 04:45 Dose: 1,000 mg Chlorhexidine Gluconate (Hibiclens For Decolonization -) 1 applic TP HS [facility] Last Admin: 02/03/19 22:25 Dose: 1 applic Heparin Sodium (Porcine) (Heparin -) 5,000 unit SQ TID [facility] Last Admin: 02/04/19 06:27 Dose: 5,000 unit Dextrose/Lactated Ringer's (D5-Lr+20 Meq Kcl -) 20 meq in 1,000 mls @ 150 mls/ hr IV [facility]IR [facility] Last Admin: 02/04/19 04:43 Dose: 150 mls/hr Insulin Human Regular 100 (units/ Sodium Chloride) 100 mls @ 14.62 mls/hr IVPB TITR [facility]; Protocol Last Titration: 02/04/19 06:21 Dose: 0.06 units/kg/hr, 6 mls/hr Morphine Sulfate (Morphine Sulfate) 2 mg IVPUSH Q4H PRN PRN Reason: PAIN LEVEL 7 - 10 Last Admin: 02/04/19 06:25 Dose: 2 mg Mupirocin (Bactroban Ointment (For Decolonization) -) 1 applic NS BID [facility] Stop: 02/08/19 21:59 Last Admin: 02/04/19 12:34 Dose: 1 applic On Examination: Last Vital Signs Temp Pulse Resp BP Pulse Ox 98.2 F 83 18 120/89 98 02/04/19 10:00 02/04/19 12:00 02/04/19 12:00 02/04/19 12:00 02/04/19 09:00 General: In no acute distress, sitting in bed, looks well. Extremities: No pallor or icterus. No pedal edema. No palpable lymphadenopathy. CVS: S1, S2, regular, no gallop or murmur. Chest: clear Abdomen: soft, non-distended Neuro: Alert, oriented Labs: CBC, BMP 02/04/19 05:53 02/04/19 05:53 Assessment. Acute pancreatitis, with hypertriglyceridema, improving with conservative measures. No role for plasmapheresis. Hematology will sign off. >30% in Hb noted overnight. - Suggest repeat CBC Microcytosis noted - iron deficiency vs thal trait - iron panel when pancreatitis resolved.
[2019-02-04 13:51] LABS: ANISOCYTOSIS 1+; MACROCYTOSIS 0; PLATELET ESTIMATE NORMAL
--- NOTE | 2019-02-04 15:55 | PN.GI ---
GI Progress Note Subjective: GI Note ( covering Dr Moya): Still c/o pain that required Dilaudid but has been eating solid food brought in by family. I have told him he must be NPO until pain resolves enough to avoid narcotics. Reiterated need to avoid alcohol. - Objective Vital Signs: Vital Signs Temperature 98.2 F 02/04/19 10:00 Pulse Rate 83 02/04/19 12:00 Respiratory Rate 18 02/04/19 12:00 Blood Pressure 120/89 02/04/19 12:00 O2 Sat by Pulse Oximetry (%) 98 02/04/19 09:00 Laboratory Tests 02/03/19 02/03/19 02/03/19 10:55 10:55 12:30 WBC 10.5 H Total Amylase 136 H 172 H Lipase 519 H 02/04/19 05:53 WBC 9.3 Total Amylase Lipase Constitutional: Anxious ...Auscultate: Yes: Normoactive Bowel Sounds ...Palpate: Yes: Soft, Other (nontender) ...Percussion: Yes: Tympanitic Labs: CBC, BMP 02/04/19 05:53 02/04/19 05:53 Assessment/Plan Assessment: - Pancreatitis due to combination of alcohol and triglycerides Plan: -- NPO until pain resolves -- Reiterated need to abstain from alcohol and to adopt a low fat diet - Continue Ringers Lactate infusion Problem List - Problems (1) Abdominal pain Code(s): R10.9 - UNSPECIFIED ABDOMINAL PAIN (2) Elevated triglycerides with high cholesterol Code(s): E78.2 - MIXED HYPERLIPIDEMIA (3) Pancreatitis Code(s): K85.90 - ACUTE PANCREATITIS WITHOUT NECROSIS OR INFECTION, UNSP
--- NOTE | 2019-02-04 16:37 | CONSULT ---
Consult Consult Specialty:: Endocrinoloyg Referred by:: Rosalind Downey MD Reason for Consultation:: Hyperglycemia, Hypertrig - History of Present Illness Chief Complaint: Abd Pain History of Present Illness: This is a 38 y/o M with h/o T2DM from 2004, on Insulin from 2008 to 2009, currently on oral hypoglycemics was admitted for evaluation of abdominal pain. He describes waxing and waning upper abdominal pain over the last 3 weeks that reminded him of the pain he had during an episode of pancreatitis in 2008. Three days ago he had about 5 cups of tequila. HE drinks tequila on most weekends. The night before admission the pain became constant and more intense associated with vomiting which prompted him to come to the hospital. Mild leukocytosis was noted on admission labs, triglycerides were 4000, blood glucose was over 400 and CMP was grosssly hemolyzed and therefore uninterpretable. Reepat blood glucose noted at 500. CT scan performed without contrast as opposed to an abdominal US that would have been reasonable, revealed enlarged fatty liver and changes consistent with pancreatitis. He doesn't check blood sugar at home. Has polyuria, Nocturiax5. Denies any visual symptoms but has paresthesia of left toes. - History Source History Provided By: Patient, Medical Record - Past Medical History Hepatobiliary: Yes: Other (pancreatitis 2008 (believes that he was told this was alcohol induced)) Endocrine: Yes: Diabetes Mellitus (DM II or oral agents), Other (Hx/o Pancreatitis) - Past Surgical History Past Surgical History: Yes: Appendectomy - Alcohol/Substance Use Hx Alcohol Use: Yes (tequila shots on weekends and two days ago) History of Substance Use: reports: None - Smoking History Smoking history: Current every day smoker Have you smoked in the past 12 months: Yes Aproximately how many cigarettes per day: 20 - Social History Usual Living Arrangement: Alone ADL: Independent Occupation: Works in construction History of Recent Travel: No Home Medications - Allergies Allergies/Adverse Reactions: Allergies Allergy/AdvReac Type Severity Reaction Status Date / Time No Known Allergies Allergy Verified 02/03/19 09:56 Family Medical History Family Hx Diabetes: Mother Review of Systems - Review of Systems Constitutional: reports: Malaise Eyes: reports: No Symptoms HENT: reports: No Symptoms Neck: reports: No Symptoms Cardiovascular: reports: No Symptoms Respiratory: reports: No Symptoms Gastrointestinal: reports: Abdominal Pain Genitourinary: reports: Other (Polyruria, Nocturia) Musculoskeletal: reports: No Symptoms Integumentary: reports: No Symptoms Neurological: reports: No Symptoms Endocrine: reports: No Symptoms Physical Exam Vital Signs: Vital Signs Temperature 98.2 F 02/04/19 10:00 Pulse Rate 83 02/04/19 12:00 Respiratory Rate 18 02/04/19 12:00 Blood Pressure 120/89 02/04/19 12:00 O2 Sat by Pulse Oximetry (%) 98 02/04/19 09:00 Constitutional: Yes: No Distress, Calm Eyes: Yes: Conjunctiva Clear, EOM Intact HENT: Yes: Atraumatic, Normocephalic Neck: Yes: Supple, Trachea Midline Cardiovascular: Yes: Regular Rate and Rhythm Respiratory: Yes: Regular, CTA Bilaterally Gastrointestinal: Yes: Normal Bowel Sounds, Soft, Tenderness, Epigastrium Musculoskeletal: Yes: WNL Extremities: Yes: WNL Edema: No Neurological: Yes: Alert, Oriented Labs: CBC, BMP 02/04/19 05:53 02/04/19 05:53 Assessment/Plan AP: T2DM A1c 14.5 Hypertriglyceridemia Pancreatitis IV hydration NPO except meds Discussed with patient need to stay NPO Start Fenofibrate 135mg QD tomorrow tolerated. Insulin drip to maintain blood sugar 120 to 180. To maintain Insulin drip rate at least 2 to 3 units per hour. Ringer Lactate with Glucose rate to be increased if necessary to maintain blood sugar until Trig levels drop to less than 500 Will need Apheresis if pt's clinical condition deteriorates. Monitor Trig
[2019-02-04] MEDS: HYDROmorphone HCl 2 MG/ML VIAL IVPUSH PRN (19:10)
[2019-02-04] MEDS: CHLORHEXIDINE GLUCONATE 4% CLEANSER FOR DECOLONIZATION TP SCH (22:27)
--- NOTE | 2019-02-04 22:28 | PN ---
Progress Note, Physician - Current Medication List Current Medications: Active Medications Acetaminophen (Ofirmev Injection -) 1,000 mg IVPB Q6H PRN PRN Reason: PAIN LEVEL 4 - 6 Last Admin: 02/04/19 04:45 Dose: 1,000 mg Chlorhexidine Gluconate (Hibiclens For Decolonization -) 1 applic TP HS [facility] Last Admin: 02/03/19 22:25 Dose: 1 applic Fenofibric Acid (Trilipix -) 135 mg PO DAILY [facility] Heparin Sodium (Porcine) (Heparin -) 5,000 unit SQ TID [facility] Last Admin: 02/04/19 13:53 Dose: 5,000 unit Hydromorphone HCl (Dilaudid Vial -) 2 mg IVPUSH Q4H PRN PRN Reason: PAIN LEVEL 6-10 Last Admin: 02/04/19 19:10 Dose: 2 mg Dextrose/Lactated Ringer's (D5-Lr+20 Meq Kcl -) 20 meq in 1,000 mls @ 150 mls/ hr IV [facility]IR [facility] Last Admin: 02/04/19 13:55 Dose: 150 mls/hr Insulin Human Regular 100 (units/ Sodium Chloride) 100 mls @ 14.62 mls/hr IVPB TITR [facility]; Protocol Last Titration: 02/04/19 06:21 Dose: 0.06 units/kg/hr, 6 mls/hr Mupirocin (Bactroban Ointment (For Decolonization) -) 1 applic NS BID [facility] Stop: 02/08/19 21:59 Last Admin: 02/04/19 12:34 Dose: 1 applic - Objective Vital Signs: Vital Signs Temperature 98 F 02/04/19 14:00 Pulse Rate 86 02/04/19 20:00 Respiratory Rate 20 02/04/19 20:42 Blood Pressure 127/57 L 02/04/19 20:00 O2 Sat by Pulse Oximetry (%) 98 02/04/19 20:42 Labs: CBC, BMP 02/04/19 05:53 02/04/19 05:53
[2019-02-05] MEDS: D5-LR+20 MEQ KCL - 20 MEQ/1,000 ML INFUS.BAG IV SCH ×2 (00:30→11:22)
[2019-02-05] MEDS: HYDROmorphone HCl 2 MG/ML VIAL IVPUSH PRN ×2 (02:43→08:38)
[2019-02-05 06:09] LABS: EOS % 1.7 % (0-4.5); HEMATOCRIT 28.8 % (35.4-49); MCH 27.4 pg (25.7-33.7); MEAN CELL VOLUME 72.1 fl (80-96); MEAN PLT VOLUME 8.7 fl (7.5-11.1); MONO % 36.9 % (3.8-10.2); NEUT % 40.4 % (42.8-82.8); PLATELET COUNT 286 K/MM3 (134-434); RDW 17.1 % (11.9-15.9); WHITE BLOOD COUNT 5.6 K/mm3 (4.0-10.0)
[2019-02-05] MEDS: HEPARIN NA (PORCINE) 5,000 UNITS/ML 1ML VIAL SQ SCH ×3 (06:26→21:09)
[2019-02-05 06:38] LABS: ALBUMIN 2.3 g/dl (3.4-5.0); ALK PHOS 83 U/L (45-117); AMYLASE 100 U/L (25-115); ANION GAP 8 MMOL/L (8-16); BILIRUBIN,TOTAL 0.7 mg/dL (0.2-1); BLOOD UREA NITROGEN 7.4 mg/dL (7-18); CALCIUM 7.2 mg/dL (8.5-10.1); CHLORIDE 105 mmol/L (98-107); CO2 27 mmol/L (21-32); CREATININE 0.6 mg/dL (0.55-1.3); GLUCOSE,RANDOM 240 mg/dL (74-106); LIPASE 250 U/L (73-393); POTASSIUM 3.9 mmol/L (3.5-5.1); SODIUM 139 mmol/L (136-145); TOT PROT 5.8 g/dl (6.4-8.2)
[2019-02-05] MEDS: INSULIN REGULAR 100 UNITS in SODIUM CHLORIDE 99 ML IVPB SCH (08:28)
--- NOTE | 2019-02-05 08:33 | PN ---
Progress Note (short form) - Note Progress Note: Pulm/CCM Pt seen and examined in the ICU. No c/o abd pain. Triglycerides downtrending. AGAP closed. Diet advanced to clears. Active Medications Acetaminophen (Ofirmev Injection -) 1,000 mg IVPB Q6H PRN PRN Reason: PAIN LEVEL 4 - 6 Last Admin: 02/04/19 04:45 Dose: 1,000 mg Chlorhexidine Gluconate (Hibiclens For Decolonization -) 1 applic TP HS [facility] Last Admin: 02/04/19 22:27 Dose: 1 applic Fenofibric Acid (Trilipix -) 135 mg PO DAILY [facility] Last Admin: 02/05/19 10:03 Dose: 135 mg Heparin Sodium (Porcine) (Heparin -) 5,000 unit SQ TID [facility] Last Admin: 02/05/19 06:26 Dose: 5,000 unit Dextrose/Lactated Ringer's (D5-Lr+20 Meq Kcl -) 20 meq in 1,000 mls @ 150 mls/ hr IV ASDIR [facility] Last Admin: 02/05/19 00:30 Dose: 150 mls/hr Insulin Human Regular 100 (units/ Sodium Chloride) 100 mls @ 14.62 mls/hr IVPB TITR [facility]; Protocol Last Titration: 02/05/19 08:31 Dose: 0.06 units/kg/hr, 6 mls/hr Mupirocin (Bactroban Ointment (For Decolonization) -) 1 applic NS BID [facility] Stop: 02/08/19 21:59 Last Admin: 02/05/19 10:04 Dose: 1 applic Vital Signs Period Temp Pulse Resp BP Sys/Dumont Pulse Ox Last 24 Hr 98 F-98.4 F 72-91 16-75 110-127/57-99 98 Intake & Output 02/02/19 02/03/19 02/04/19 02/05/19 23:59 23:59 23:59 23:59 Intake Total 1229 3676 1332 Output Total 400 2700 700 Balance 829 976 632 Weight 92.079 kg CBC, BMP 02/05/19 05:25 02/05/19 05:20 CBC,CMP WBC 5.6 K/mm3 (4.0-10.0) 02/05/19 05:25 RBC 4.00 M/mm3 (4.00-5.60) 02/05/19 05:25 Hgb 11.0 GM/dL (11.7-16.9) L 02/05/19 05:25 Hct 28.8 % (35.4-49) L 02/05/19 05:25 MCV 72.1 fl (80-96) L 02/05/19 05:25 MCH 27.4 pg (25.7-33.7) 02/05/19 05:25 MCHC 38.0 g/dl (32.0-35.9) H 02/05/19 05:25 RDW 17.1 % (11.9-15.9) H 02/05/19 05:25 Plt Count 286 K/MM3 (134-434) 02/05/19 05:25 MPV 8.7 fl (7.5-11.1) 02/05/19 05:25 Absolute Neuts (auto) 2.2 K/mm3 (1.5-8.0) 02/05/19 05:25 Neutrophils % 40.4 % (42.8-82.8) L D 02/05/19 05:25 Neutrophils % (Manual) 69.0 % (42.8-82.8) 02/05/19 05:25 Band Neutrophils % 0.0 % 02/05/19 05:25 Lymphocytes % 21.0 % (8-40) D 02/05/19 05:25 Lymphocytes % (Manual) 21.0 % (8-40) D 02/05/19 05:25 Monocytes % 36.9 % (3.8-10.2) H D 02/05/19 05:25 Monocytes % (Manual) 3 % (3.8-10.2) L 02/05/19 05:25 Eosinophils % 1.7 % (0-4.5) 02/05/19 05:25 Eosinophils % (Manual) 7.0 % (0-4.5) H 02/05/19 05:25 Basophils % 0.0 % (0-2.0) 02/05/19 05:25 Basophils % (Manual) 0.0 % (0-2.0) 02/05/19 05:25 Myelocytes % (Man) 0 % (0-2) 02/04/19 05:53 Promyelocytes % (Man) 0 % (0-2) 02/04/19 05:53 Blast Cells % (Manual) 0 % (0-0) 02/04/19 05:53 Nucleated RBC % 0 % (0-0) 02/05/19 05:25 Metamyelocytes 0 % (0-2) 02/04/19 05:53 Hypochromia 1+ 02/04/19 05:53 Platelet Estimate Adequate 02/05/19 05:25 Platelet Comment No clumping noted 02/04/19 05:53 Platelet Comment Unable to enumerate 02/03/19 10:55 Polychromasia 0 02/04/19 05:53 Poikilocytosis 0 02/04/19 05:53 Anisocytosis 1+ 02/04/19 05:53 Microcytosis 1+ 02/04/19 05:53 Macrocytosis 0 02/04/19 05:53 Sodium 139 mmol/L (136-145) 02/05/19 05:20 Potassium 3.9 mmol/L (3.5-5.1) 02/05/19 05:20 Chloride 105 mmol/L (98-107) 02/05/19 05:20 Carbon Dioxide 27 mmol/L (21-32) 02/05/19 05:20 Anion Gap 8 MMOL/L (8-16) 02/05/19 05:20 BUN 7.4 mg/dL (7-18) 02/05/19 05:20 Creatinine 0.6 mg/dL (0.55-1.3) 02/05/19 05:20 Est GFR (CKD-EPI)AfAm 149.92 02/05/19 05:20 Est GFR (CKD-EPI)NonAf 129.35 02/05/19 05:20 POC Glucometer 173 UNITS (80-120) 02/05/19 09:44 Random Glucose 240 mg/dL (74-106) H 02/05/19 05:20 Hemoglobin A1c % 15.7 % (4.2-6.3) H 02/05/19 05:20 Lactic Acid 1.7 mmol/L (0.4-2.0) 02/03/19 21:23 Calcium 7.2 mg/dL (8.5-10.1) L 02/05/19 05:20 Phosphorus 3.8 mg/dL (2.5-4.9) 02/04/19 05:53 Magnesium 1.7 mg/dL (1.8-2.4) L 02/04/19 05:53 Total Bilirubin 0.7 mg/dL (0.2-1) 02/05/19 05:20 Direct Bilirubin 0.1 mg/dL (0.0-0.2) 02/03/19 21:23 AST [employer] 02/05/19 05:20 ALT U/L (13-61) 02/05/19 05:20 Alkaline Phosphatase 83 U/L (45-117) 02/05/19 05:20 LD Total 160 U/L (87-246) 02/03/19 12:30 C-Reactive Protein 9.4 MG/DL (0.00-0.3) H 02/05/19 05:20 Total Protein 5.8 g/dl (6.4-8.2) L 02/05/19 05:20 Albumin 2.3 g/dl (3.4-5.0) L 02/05/19 05:20 Triglycerides 2714 mg/dL (0-150) H 02/05/19 05:20 Cholesterol 342 mg/dL (50-200) H 02/03/19 12:30 Total LDL Cholesterol 135 mg/dL (5-100) H 02/03/19 12:30 HDL Cholesterol 32 mg/dL (40-60) L 02/03/19 12:30 Total Amylase 100 U/L (25-115) 02/05/19 05:20 Lipase 250 U/L (73-393) 02/05/19 05:20 Beta-Hydroxybutyrate 26.3 mg/dL (0.2-2.8) H 02/03/19 12:30 Imaging - Results Cat Scan: Report Reviewed (CTAP 02/03: 1. Enlarged pancreas with mild peripancreatic inflammation consistent with acute pancreatitis. 2. Hepatomegaly with diffuse fatty infiltration of the liver. 3. No additional evidence of acute pathology within the abdomen or pelvis. Limited study as described above.) Ultrasound: Report Reviewed (ABD US 02/03: No sonographic evidence of cholelithiasis or acute cholecystitis. There is no definite biliary tract dilatation. Diffuse pancreatic swelling is seen possibly on the basis of acute pancreatitis. Within or adjacent to the pancreatic head posteriorly a nonspecific complex 2 cm spherical structure is noted as discussed above.) Problem List - Problems (1) Elevated triglycerides with high cholesterol Code(s): E78.2 - MIXED HYPERLIPIDEMIA (2) Pancreatitis Code(s): K85.90 - ACUTE PANCREATITIS WITHOUT NECROSIS OR INFECTION, UNSP Assessment/Plan ASSESS: pancreatitis hypertriglyceridemia DM Et-OH PLAN: -Advance to clears -IVFs -Insulin gtt -FS q 1hr -Trend TAG -Trend LFTs -ENDO Savannah Frederick, [facility] ICU PULM/CCM [id number]
[2019-02-05 08:49] LABS: TRIGLYCERIDES 2714 mg/dL (0-150)
[2019-02-05 10:01] LABS: PLATELET ESTIMATE ADEQUATE
[2019-02-05] MEDS: FENOFIBRIC ACID 135 MG CAP PO SCH (10:03)
[2019-02-05] MEDS ORDERED: PT OWN MED DRAWER 7, Y5N ONE (10:03)
[2019-02-05] MEDS: MUPIROCIN 2% TOPICAL OINTMENT FOR DECOLONIZATION NS SCH ×2 (10:04→21:09)
--- NOTE | 2019-02-05 11:05 | PN ---
Progress Note (short form) - Note Progress Note: Feels better Vital Signs Period Temp Pulse Resp BP Sys/Dumont Pulse Ox Last 24 Hr 98 F-98.4 F 72-91 16-75 110-127/57-99 98 PE: AOx3 Neck: supple, No JVD HEENT: EOMI Neck: supple, No JVD Lungs: CTA CVs: s1s2 Abd: Benign Ext: No edema Neuro: No focal deficit CMP Sodium 139 mmol/L (136-145) 02/05/19 05:20 Potassium 3.9 mmol/L (3.5-5.1) 02/05/19 05:20 Chloride 105 mmol/L (98-107) 02/05/19 05:20 Carbon Dioxide 27 mmol/L (21-32) 02/05/19 05:20 Anion Gap 8 MMOL/L (8-16) 02/05/19 05:20 BUN 7.4 mg/dL (7-18) 02/05/19 05:20 Creatinine 0.6 mg/dL (0.55-1.3) 02/05/19 05:20 Est GFR (CKD-EPI)AfAm 149.92 02/05/19 05:20 Est GFR (CKD-EPI)NonAf 129.35 02/05/19 05:20 POC Glucometer 173 UNITS (80-120) 02/05/19 09:44 Random Glucose 240 mg/dL (74-106) H 02/05/19 05:20 Hemoglobin A1c % 15.7 % (4.2-6.3) H 02/05/19 05:20 Lactic Acid 1.7 mmol/L (0.4-2.0) 02/03/19 21:23 Calcium 7.2 mg/dL (8.5-10.1) L 02/05/19 05:20 Phosphorus 3.8 mg/dL (2.5-4.9) 02/04/19 05:53 Magnesium 1.7 mg/dL (1.8-2.4) L 02/04/19 05:53 Total Bilirubin 0.7 mg/dL (0.2-1) 02/05/19 05:20 Direct Bilirubin 0.1 mg/dL (0.0-0.2) 02/03/19 21:23 AST Dumper 02/05/19 05:20 ALT U/L (13-61) 02/05/19 05:20 Alkaline Phosphatase 83 U/L (45-117) 02/05/19 05:20 LD Total 160 U/L (87-246) 02/03/19 12:30 C-Reactive Protein 9.4 MG/DL (0.00-0.3) H 02/05/19 05:20 Total Protein 5.8 g/dl (6.4-8.2) L 02/05/19 05:20 Albumin 2.3 g/dl (3.4-5.0) L 02/05/19 05:20 Triglycerides 2714 mg/dL (0-150) H 02/05/19 05:20 Cholesterol 342 mg/dL (50-200) H 02/03/19 12:30 Total LDL Cholesterol 135 mg/dL (5-100) H 02/03/19 12:30 HDL Cholesterol 32 mg/dL (40-60) L 02/03/19 12:30 Total Amylase 100 U/L (25-115) 02/05/19 05:20 Lipase 250 U/L (73-393) 02/05/19 05:20 Beta-Hydroxybutyrate 26.3 mg/dL (0.2-2.8) H 02/03/19 12:30 Current Medications Generic Name Dose Route Start Last Admin Trade Name Shan PRN Reason Stop Dose Admin Acetaminophen 1,000 mg 02/03/19 22:45 02/04/19 04:45 Ofirmev Injection - IVPB 1,000 mg Q6H PRN Administration PAIN LEVEL 4 - 6 Chlorhexidine Gluconate 1 applic 02/03/19 22:00 02/04/19 22:27 Hibiclens For Decolonization - TP 1 applic HS [facility] Administration Fenofibric Acid 135 mg 02/05/19 10:00 02/05/19 10:03 Trilipix - PO 135 mg DAILY [facility] Administration Heparin Sodium (Porcine) 5,000 unit 02/03/19 22:00 02/05/19 06:26 Heparin - SQ 5,000 unit TID [facility] Administration Dextrose/Lactated Ringer's 20 meq in 1,000 mls @ 150 mls/hr 02/03/19 21:45 00:30 D5-Lr+20 Meq Kcl - IV 150 mls/hr ASDIR [facility] Administration Insulin Human Regular 100 100 mls @ 14.62 mls/hr 02/03/19 23:50 02/05/19 08: 31 units/ Sodium Chloride IVPB 0.06 units/kg/hr TITR [facility] 6 mls/hr Titration Protocol 0.15 UNITS/KG/HR Mupirocin 1 applic 02/03/19 22:00 02/05/19 10:04 Bactroban Ointment (For Decolonization) - NS 02/08/19 21:59 1 applic BID [facility] Administration AP: T2DM A1c 14.5 Hypertriglyceridemia Pancreatitis IV hydration NPO except meds Discussed with patient need to be on Insulin drip and IV until Trig drops to less than 500 Fenofibrate 135mg QD Insulin drip to maintain blood sugar 120 to 180. To maintain Insulin drip rate at least 2 to 3 units per hour. Ringer Lactate with Glucose rate to be increased if necessary to maintain blood sugar until Trig levels drop to less than 500 Will need Apheresis if pt's clinical condition deteriorates. Monitor Trig
--- NOTE | 2019-02-05 11:25 | PN.GI ---
GI Progress Note Subjective: GI NOte ( covering Dr. Moya): Pain free and hungry today. Was again eating food from home yesterday. Will stop narcotic anagesics and advanced diet as tolerated. - Objective Vital Signs: Vital Signs Temperature 98.4 F 02/05/19 00:00 Pulse Rate 78 02/05/19 08:00 Respiratory Rate 16 02/05/19 08:00 Blood Pressure 113/92 02/05/19 08:00 O2 Sat by Pulse Oximetry (%) 98 02/04/19 20:42 Laboratory Tests 02/05/19 02/05/19 05:20 05:25 WBC 5.6 Hgb 11.0 L Total Amylase 100 Lipase 250 Constitutional: Anxious ...Auscultate: Yes: Normoactive Bowel Sounds ...Palpate: Yes: Soft, Other (nontender) Labs: CBC, BMP 02/05/19 05:25 02/05/19 05:20 Assessment/Plan Assessment: - Resolved pancreatitis due to combination of alcohol and triglycerides Plan: -- Advance diet as tolerated -- Taper Ringers Lactate infusion Problem List - Problems (1) Abdominal pain Code(s): R10.9 - UNSPECIFIED ABDOMINAL PAIN (2) Elevated triglycerides with high cholesterol Code(s): E78.2 - MIXED HYPERLIPIDEMIA (3) Pancreatitis Code(s): K85.90 - ACUTE PANCREATITIS WITHOUT NECROSIS OR INFECTION, UNSP
[2019-02-05] MEDS ORDERED: LACTATED RINGERS SOLUTION 1,000 ML/1,000 ML INFUS.BAG IV SCH (11:30)
[2019-02-05] MEDS: NICOTINE 21 MG/24 HOURS TOPICAL PATCH TD SCH (16:24)
[2019-02-05] MEDS: CHLORHEXIDINE GLUCONATE 4% CLEANSER FOR DECOLONIZATION TP SCH (21:09)
--- NOTE | 2019-02-05 23:00 | PN ---
Progress Note, Physician History of Present Illness: Pt states that abdominal discomfort is improving - Current Medication List Current Medications: Active Medications Acetaminophen (Ofirmev Injection -) 1,000 mg IVPB Q6H PRN PRN Reason: PAIN LEVEL 4 - 6 Last Admin: 02/04/19 04:45 Dose: 1,000 mg Chlorhexidine Gluconate (Hibiclens For Decolonization -) 1 applic TP HS [facility] Last Admin: 02/05/19 21:09 Dose: 1 applic Fenofibric Acid (Trilipix -) 135 mg PO DAILY [facility] Last Admin: 02/05/19 10:03 Dose: 135 mg Heparin Sodium (Porcine) (Heparin -) 5,000 unit SQ TID [facility] Last Admin: 02/05/19 21:09 Dose: 5,000 unit Insulin Human Regular 100 (units/ Sodium Chloride) 100 mls @ 14.62 mls/hr IVPB TITR [facility]; Protocol Last Titration: 02/05/19 08:31 Dose: 0.06 units/kg/hr, 6 mls/hr Lactated Ringer's (Lactated Ringers Solution) 1,000 ml in 1,000 mls @ 125 mls/ hr IV ASDIR [facility] Last Admin: 02/05/19 17:44 Dose: 125 mls/hr Mupirocin (Bactroban Ointment (For Decolonization) -) 1 applic NS BID [facility] Stop: 02/08/19 21:59 Last Admin: 02/05/19 21:09 Dose: 1 applic Nicotine (Nicoderm Patch -) 21 mg TD DAILY [facility] Last Admin: 02/05/19 16:24 Dose: 21 mg - Objective Vital Signs: Vital Signs Temperature 98.2 F 02/05/19 18:00 Pulse Rate 77 02/05/19 20:00 Respiratory Rate 23 H 02/05/19 20:00 Blood Pressure 143/95 02/05/19 20:00 O2 Sat by Pulse Oximetry (%) 99 02/05/19 21:00 Cardiovascular: Yes: WNL, Regular Rate and Rhythm Respiratory: Yes: WNL, Regular, CTA Bilaterally Gastrointestinal: Yes: WNL, Normal Bowel Sounds, Soft Labs: CBC, BMP 02/05/19 05:25 02/05/19 05:20 Problem List - Problems (1) Pancreatitis Assessment/Plan: Diet being advanced Cont IV fluids Code(s): K85.90 - ACUTE PANCREATITIS WITHOUT NECROSIS OR INFECTION, UNSP (2) Uncontrolled diabetes mellitus Assessment/Plan: Cont insulin drip Apheresis if TGA's do not improve Code(s): E11.65 - TYPE 2 DIABETES MELLITUS WITH HYPERGLYCEMIA (3) Elevated triglycerides with high cholesterol Assessment/Plan: Cont fenofibrate Code(s): E78.2 - MIXED HYPERLIPIDEMIA
[2019-02-06] MEDS: HEPARIN NA (PORCINE) 5,000 UNITS/ML 1ML VIAL SQ SCH ×3 (05:52→22:21)
[2019-02-06 06:40] LABS: EOS % 5.5 % (0-4.5); HEMOGLOBIN 10.3 GM/dL (11.7-16.9); LYMPH % 36.9 % (8-40); MCH 25.6 pg (25.7-33.7); MCHC 35.5 g/dl (32.0-35.9); MEAN CELL VOLUME 72.1 fl (80-96); MEAN PLT VOLUME 8.8 fl (7.5-11.1); MONO % 9.4 % (3.8-10.2); NEUT % 45.2 % (42.8-82.8); PLATELET COUNT 300 K/MM3 (134-434); RBC 4.02 M/mm3 (4.00-5.60); WHITE BLOOD COUNT 4.1 K/mm3 (4.0-10.0)
[2019-02-06 07:22] LABS: ALBUMIN 2.3 g/dl (3.4-5.0); ALK PHOS 75 U/L (45-117); AMYLASE 119 U/L (25-115); BILIRUBIN,TOTAL 0.5 mg/dL (0.2-1); CALCIUM 8.2 mg/dL (8.5-10.1); CHLORIDE 105 mmol/L (98-107); CO2 28 mmol/L (21-32); CREATININE 0.6 mg/dL (0.55-1.3); HDL CHOLESTEROL 23 mg/dL (40-60); LDL CHOLESTEROL (ONLY SJRH) 112 mg/dL (5-100); LIPASE 199 U/L (73-393); SODIUM 142 mmol/L (136-145)
[2019-02-06 07:58] LABS: ANION GAP 9 MMOL/L (8-16); CHOLESTEROL 340 mg/dL (50-200); GLUCOSE,RANDOM 154 mg/dL (74-106); POTASSIUM 3.6 mmol/L (3.5-5.1); TRIGLYCERIDES 1775 mg/dL (0-150)
[2019-02-06] MEDS: NICOTINE 21 MG/24 HOURS TOPICAL PATCH TD SCH (09:48)
[2019-02-06] MEDS: FENOFIBRIC ACID 135 MG CAP PO SCH (09:48)
[2019-02-06] MEDS: MUPIROCIN 2% TOPICAL OINTMENT FOR DECOLONIZATION NS SCH ×2 (09:49→22:21)
[2019-02-06] MEDS ORDERED: diphenhydrAMINE HCL 25 MG CAPSULE (FP) PO PRN (11:17)
[2019-02-06] MEDS: DEXTROSE 5%-LACTATED RINGERS 1,000 ML IV SCH (11:26)
--- NOTE | 2019-02-06 11:40 | PN ---
Teaching Attending Note Name of Resident: Marin Yoo ATTENDING PHYSICIAN STATEMENT I saw and evaluated the patient. I reviewed the resident's note and discussed the case with the resident. I agree with the resident's findings and plan as documented. SUBJECTIVE: Patient seen and examined in the ICU. Reports abdominal pain is better. Apparently has been eating food from the coffee shop. Triglycerides downtrending but still > 1700. No CP or SOB. Intake & Output 02/03/19 02/04/19 02/05/19 02/06/19 23:59 23:59 23:59 23:59 Intake Total 1229 3676 3651 Output Total 400 2700 1950 Balance 444 127 2069 Weight 203 lb 203 lb 216 lb 1.6 oz Last Vital Signs Temp Pulse Resp BP Pulse Ox 98.3 F 79 24 H 140/92 99 02/06/19 10:00 02/06/19 10:00 02/06/19 10:00 02/06/19 10:00 02/06/19 09:00 Active Medications Acetaminophen (Ofirmev Injection -) 1,000 mg IVPB Q6H PRN PRN Reason: PAIN LEVEL 4 - 6 Last Admin: 02/04/19 04:45 Dose: 1,000 mg Chlorhexidine Gluconate (Hibiclens For Decolonization -) 1 applic TP HS [facility] Last Admin: 02/05/19 21:09 Dose: 1 applic Diphenhydramine HCl (Benadryl -) 25 mg PO Q6H PRN PRN Reason: FOR ITCHING Last Admin: 02/06/19 11:26 Dose: 25 mg Fenofibric Acid (Trilipix -) 135 mg PO DAILY [facility] Last Admin: 02/06/19 09:48 Dose: 135 mg Heparin Sodium (Porcine) (Heparin -) 5,000 unit SQ TID [facility] Last Admin: 02/06/19 05:52 Dose: 5,000 unit Insulin Human Regular 100 (units/ Sodium Chloride) 100 mls @ 14.62 mls/hr IVPB TITR [facility]; Protocol Last Titration: 02/06/19 10:00 Dose: 0.06 units/kg/hr, 6 mls/hr Dextrose/Lactated Ringer's (D5-Lr -) 1,000 mls @ 125 mls/hr IV ASDIR [facility] Last Admin: 02/06/19 11:26 Dose: 125 mls/hr Mupirocin (Bactroban Ointment (For Decolonization) -) 1 applic NS BID [facility] Stop: 02/08/19 21:59 Last Admin: 02/06/19 09:49 Dose: 1 applic Nicotine (Nicoderm Patch -) 21 mg TD DAILY [facility] Last Admin: 02/06/19 09:48 Dose: 21 mg Constitutional: Yes: Awake and alert. NAD Eyes: Yes: WNL, Conjunctiva Clear, EOM Intact HENT: Yes: WNL, Atraumatic, Normocephalic Neck: Yes: WNL, Supple, Trachea Midline Cardiovascular: Yes: WNL, Regular Rate and Rhythm Respiratory: Yes: WNL, Regular, CTA Bilaterally Gastrointestinal: Yes: WNL, Normal Bowel Sounds, Soft Musculoskeletal: Yes: WNL Extremities: Yes: WNL Edema: No Peripheral Pulses WNL: Yes Integumentary: Yes: WNL Neurological: Yes: WNL, Alert, Oriented ...Motor Strength: WNL Psychiatric: Yes: WNL, Alert, Oriented Labs: Laboratory Results - last 24 hr 02/05/19 02/05/19 02/05/19 11:59 13:06 14:22 WBC RBC Hgb Hct MCV MCH MCHC RDW Plt Count MPV Absolute Neuts (auto) Neutrophils % Lymphocytes % Monocytes % Eosinophils % Basophils % Nucleated RBC % Sodium Potassium Chloride Carbon Dioxide Anion Gap BUN Creatinine Est GFR (CKD-EPI)AfAm Est GFR (CKD-EPI)NonAf POC Glucometer 118 143 240 Random Glucose Calcium Total Bilirubin AST ALT Alkaline Phosphatase C-Reactive Protein Total Protein Albumin Triglycerides Cholesterol Total LDL Cholesterol HDL Cholesterol Total Amylase Lipase 02/05/19 02/05/19 02/05/19 15:33 16:27 17:53 WBC RBC Hgb Hct MCV MCH MCHC RDW Plt Count MPV Absolute Neuts (auto) Neutrophils % Lymphocytes % Monocytes % Eosinophils % Basophils % Nucleated RBC % Sodium Potassium Chloride Carbon Dioxide Anion Gap BUN Creatinine Est GFR (CKD-EPI)AfAm Est GFR (CKD-EPI)NonAf POC Glucometer 299 300 Random Glucose Calcium Total Bilirubin AST ALT Alkaline Phosphatase C-Reactive Protein Total Protein Albumin Triglycerides 1882 H Cholesterol Total LDL Cholesterol HDL Cholesterol Total Amylase Lipase 02/05/19 02/05/19 02/05/19 18:44 20:12 21:48 WBC RBC Hgb Hct MCV MCH MCHC RDW Plt Count MPV Absolute Neuts (auto) Neutrophils % Lymphocytes % Monocytes % Eosinophils % Basophils % Nucleated RBC % Sodium Potassium Chloride Carbon Dioxide Anion Gap BUN Creatinine Est GFR (CKD-EPI)AfAm Est GFR (CKD-EPI)NonAf POC Glucometer 304 345 268 Random Glucose Calcium Total Bilirubin AST ALT Alkaline Phosphatase C-Reactive Protein Total Protein Albumin Triglycerides Cholesterol Total LDL Cholesterol HDL Cholesterol Total Amylase Lipase 02/05/19 02/06/19 02/06/19 23:37 01:10 02:34 WBC RBC Hgb Hct MCV MCH MCHC RDW Plt Count MPV Absolute Neuts (auto) Neutrophils % Lymphocytes % Monocytes % Eosinophils % Basophils % Nucleated RBC % Sodium Potassium Chloride Carbon Dioxide Anion Gap BUN Creatinine Est GFR (CKD-EPI)AfAm Est GFR (CKD-EPI)NonAf POC Glucometer 296 240 196 Random Glucose Calcium Total Bilirubin AST ALT Alkaline Phosphatase C-Reactive Protein Total Protein Albumin Triglycerides Cholesterol Total LDL Cholesterol HDL Cholesterol Total Amylase Lipase 02/06/19 02/06/19 02/06/19 04:32 05:35 05:40 WBC 4.1 RBC 4.02 Hgb 10.3 L Hct 29.0 L MCV 72.1 L MCH 25.6 L MCHC 35.5 RDW 17.0 H Plt Count 300 MPV 8.8 Absolute Neuts (auto) 1.9 Neutrophils % 45.2 Lymphocytes % 36.9 D Monocytes % 9.4 Eosinophils % 5.5 H D Basophils % 3.0 H D Nucleated RBC % 0 Sodium Potassium Chloride Carbon Dioxide Anion Gap BUN Creatinine Est GFR (CKD-EPI)AfAm Est GFR (CKD-EPI)NonAf POC Glucometer 144 130 Random Glucose Calcium Total Bilirubin AST ALT Alkaline Phosphatase C-Reactive Protein Total Protein Albumin Triglycerides Cholesterol Total LDL Cholesterol HDL Cholesterol Total Amylase Lipase 02/06/19 02/06/19 02/06/19 05:40 05:40 06:55 WBC RBC Hgb Hct MCV MCH MCHC RDW Plt Count MPV Absolute Neuts (auto) Neutrophils % Lymphocytes % Monocytes % Eosinophils % Basophils % Nucleated RBC % Sodium 142 Potassium 3.6 Chloride 105 Carbon Dioxide 28 Anion Gap 9 BUN TNP Creatinine 0.6 Est GFR (CKD-EPI)AfAm 149.92 Est GFR (CKD-EPI)NonAf 129.35 POC Glucometer 174 Random Glucose 154 H Calcium 8.2 L Total Bilirubin 0.5 AST TNP ALT TNP Alkaline Phosphatase 75 C-Reactive Protein 5.5 H Total Protein TNP Albumin 2.3 L Triglycerides 1775 H Cholesterol 340 H Total LDL Cholesterol 112 H HDL Cholesterol 23 L Total Amylase 119 H Lipase 199 02/06/19 02/06/19 10:01 11:07 WBC RBC Hgb Hct MCV MCH MCHC RDW Plt Count MPV Absolute Neuts (auto) Neutrophils % Lymphocytes % Monocytes % Eosinophils % Basophils % Nucleated RBC % Sodium Potassium Chloride Carbon Dioxide Anion Gap BUN Creatinine Est GFR (CKD-EPI)AfAm Est GFR (CKD-EPI)NonAf POC Glucometer 291 282 Random Glucose Calcium Total Bilirubin AST ALT Alkaline Phosphatase C-Reactive Protein Total Protein Albumin Triglycerides Cholesterol Total LDL Cholesterol HDL Cholesterol Total Amylase Lipase Problem List - Problems (1) Elevated triglycerides with high cholesterol Code(s): E78.2 - MIXED HYPERLIPIDEMIA (2) Pancreatitis Code(s): K85.90 - ACUTE PANCREATITIS WITHOUT NECROSIS OR INFECTION, UNSP Assessment/Plan Pancreatitis Hypertriglyceridemia DM ETOH PLAN: -Insulin drip -PO as tolerated -IVF: D5LR -Follow blood sugars -Trend Triglycerides -Trend LFTs -May need to consider Apheresis if Triglycerides are plateauing -ICU monitoring while on IV Insulin drip Dr Franklin
--- NOTE | 2019-02-06 14:41 | PN ---
Progress Note, Physician - Current Medication List Current Medications: Active Medications Acetaminophen (Ofirmev Injection -) 1,000 mg IVPB Q6H PRN PRN Reason: PAIN LEVEL 4 - 6 Last Admin: 02/04/19 04:45 Dose: 1,000 mg Chlorhexidine Gluconate (Hibiclens For Decolonization -) 1 applic TP HS [facility] Last Admin: 02/05/19 21:09 Dose: 1 applic Diphenhydramine HCl (Benadryl -) 25 mg PO Q6H PRN PRN Reason: FOR ITCHING Last Admin: 02/06/19 11:26 Dose: 25 mg Fenofibric Acid (Trilipix -) 135 mg PO DAILY [facility] Last Admin: 02/06/19 09:48 Dose: 135 mg Heparin Sodium (Porcine) (Heparin -) 5,000 unit SQ TID [facility] Last Admin: 02/06/19 14:34 Dose: 5,000 unit Insulin Human Regular 100 (units/ Sodium Chloride) 100 mls @ 14.62 mls/hr IVPB TITR [facility]; Protocol Last Titration: 02/06/19 13:00 Dose: 0.07 units/kg/hr, 6.82 mls/hr Dextrose/Lactated Ringer's (D5-Lr -) 1,000 mls @ 125 mls/hr IV ASDIR [facility] Last Admin: 02/06/19 11:26 Dose: 125 mls/hr Mupirocin (Bactroban Ointment (For Decolonization) -) 1 applic NS BID [facility] Stop: 02/08/19 21:59 Last Admin: 02/06/19 09:49 Dose: 1 applic Nicotine (Nicoderm Patch -) 21 mg TD DAILY [facility] Last Admin: 02/06/19 09:48 Dose: 21 mg - Objective Vital Signs: Temperature 98.3 F 02/06/19 10:00 Pulse Rate 80 02/06/19 12:00 Respiratory Rate 20 02/06/19 12:00 Blood Pressure 145/84 02/06/19 12:00 O2 Sat by Pulse Oximetry (%) 99 02/06/19 09:00 GENERAL: The patient is lying in bed, AOx3, awake, alert, and fully oriented, in no acute distress, cooperative HEAD: Oropharynx clear, no lesions noted LUNGS: Breath sounds equal, clear to auscultation bilaterally, no accessory muscle use. HEART: Regular rate and rhythm, S1, S2 without murmur, rub or gallop. ABDOMEN: Soft, nontender, nondistended, normoactive bowel sounds, no guarding EXTREMITIES: 2+ pulses, warm, well-perfused, no edema. SKIN: Warm, dry, normal turgor, no rashes or lesions noted Labs: CBC, BMP 02/06/19 05:40 02/06/19 05:40 ATTENDING PHYSICIAN STATEMENT I saw and evaluated the patient. I reviewed the resident's note and discussed the case with the resident. I agree with the resident's findings and plan as documented. SUBJECTIVE: OBJECTIVE: ASSESSMENT AND PLAN:
--- NOTE | 2019-02-06 15:23 | PN ---
Physical Exam: SUBJECTIVE: Patient seen and examined by the bedside. Slept well overnight, no BM but has been passing gas. Reports mild epigastric pain. Had chicken broth last night, reports no nausea, vomiting. OBJECTIVE: Vital Signs Period Temp Pulse Resp BP Sys/[place] Pulse Ox Last 24 Hr 98.1 F-98.3 F 67-88 16-32 100-154/72-99 99-99 GENERAL: The patient is awake, alert, and fully oriented, in no acute distress. HEAD: Normal with no signs of trauma. EYES: PERRL, extraocular movements intact, sclera anicteric, conjunctiva clear. No ptosis. ENT: Ears normal, nares patent, oropharynx clear without exudates, moist mucous membranes. NECK: Trachea midline, full range of motion, supple. LUNGS: Breath sounds equal, clear to auscultation bilaterally, no wheezes, no crackles, no accessory muscle use. HEART: Regular rate and rhythm, S1, S2 without murmur, rub or gallop. ABDOMEN: Soft, nontender, nondistended, normoactive bowel sounds, no guarding, no rebound, no hepatosplenomegaly, no masses. EXTREMITIES: 2+ pulses, warm, well-perfused, no edema. NEUROLOGICAL: Cranial nerves II through XII grossly intact. Normal speech, gait not observed. PSYCH: Normal mood, normal affect. SKIN: Warm, dry, normal turgor, no rashes or lesions noted Laboratory Results - last 24 hr 02/05/19 02/05/19 02/05/19 15:33 16:27 17:53 WBC RBC Hgb Hct MCV MCH MCHC RDW Plt Count MPV Absolute Neuts (auto) Neutrophils % Lymphocytes % Monocytes % Eosinophils % Basophils % Nucleated RBC % Sodium Potassium Chloride Carbon Dioxide Anion Gap BUN Creatinine Est GFR (CKD-EPI)AfAm Est GFR (CKD-EPI)NonAf POC Glucometer 299 300 Random Glucose Calcium Total Bilirubin AST ALT Alkaline Phosphatase C-Reactive Protein Total Protein Albumin Triglycerides 1882 H Cholesterol Total LDL Cholesterol HDL Cholesterol Total Amylase Lipase 02/05/19 02/05/19 02/05/19 18:44 20:12 21:48 WBC RBC Hgb Hct MCV MCH MCHC RDW Plt Count MPV Absolute Neuts (auto) Neutrophils % Lymphocytes % Monocytes % Eosinophils % Basophils % Nucleated RBC % Sodium Potassium Chloride Carbon Dioxide Anion Gap BUN Creatinine Est GFR (CKD-EPI)AfAm Est GFR (CKD-EPI)NonAf POC Glucometer 304 345 268 Random Glucose Calcium Total Bilirubin AST ALT Alkaline Phosphatase C-Reactive Protein Total Protein Albumin Triglycerides Cholesterol Total LDL Cholesterol HDL Cholesterol Total Amylase Lipase 02/05/19 02/06/19 02/06/19 23:37 01:10 02:34 WBC RBC Hgb Hct MCV MCH MCHC RDW Plt Count MPV Absolute Neuts (auto) Neutrophils % Lymphocytes % Monocytes % Eosinophils % Basophils % Nucleated RBC % Sodium Potassium Chloride Carbon Dioxide Anion Gap BUN Creatinine Est GFR (CKD-EPI)AfAm Est GFR (CKD-EPI)NonAf POC Glucometer 296 240 196 Random Glucose Calcium Total Bilirubin AST ALT Alkaline Phosphatase C-Reactive Protein Total Protein Albumin Triglycerides Cholesterol Total LDL Cholesterol HDL Cholesterol Total Amylase Lipase 02/06/19 02/06/19 02/06/19 04:32 05:35 05:40 WBC 4.1 RBC 4.02 Hgb 10.3 L Hct 29.0 L MCV 72.1 L MCH 25.6 L MCHC 35.5 RDW 17.0 H Plt Count 300 MPV 8.8 Absolute Neuts (auto) 1.9 Neutrophils % 45.2 Lymphocytes % 36.9 D Monocytes % 9.4 Eosinophils % 5.5 H D Basophils % 3.0 H D Nucleated RBC % 0 Sodium Potassium Chloride Carbon Dioxide Anion Gap BUN Creatinine Est GFR (CKD-EPI)AfAm Est GFR (CKD-EPI)NonAf POC Glucometer 144 130 Random Glucose Calcium Total Bilirubin AST ALT Alkaline Phosphatase C-Reactive Protein Total Protein Albumin Triglycerides Cholesterol Total LDL Cholesterol HDL Cholesterol Total Amylase Lipase 02/06/19 02/06/19 02/06/19 05:40 05:40 06:55 WBC RBC Hgb Hct MCV MCH MCHC RDW Plt Count MPV Absolute Neuts (auto) Neutrophils % Lymphocytes % Monocytes % Eosinophils % Basophils % Nucleated RBC % Sodium 142 Potassium 3.6 Chloride 105 Carbon Dioxide 28 Anion Gap 9 BUN TNP Creatinine 0.6 Est GFR (CKD-EPI)AfAm 149.92 Est GFR (CKD-EPI)NonAf 129.35 POC Glucometer 174 Random Glucose 154 H Calcium 8.2 L Total Bilirubin 0.5 AST TNP ALT TNP Alkaline Phosphatase 75 C-Reactive Protein 5.5 H Total Protein TNP Albumin 2.3 L Triglycerides 1775 H Cholesterol 340 H Total LDL Cholesterol 112 H HDL Cholesterol 23 L Total Amylase 119 H Lipase 199 02/06/19 02/06/19 02/06/19 10:01 11:07 12:14 WBC RBC Hgb Hct MCV MCH MCHC RDW Plt Count MPV Absolute Neuts (auto) Neutrophils % Lymphocytes % Monocytes % Eosinophils % Basophils % Nucleated RBC % Sodium Potassium Chloride Carbon Dioxide Anion Gap BUN Creatinine Est GFR (CKD-EPI)AfAm Est GFR (CKD-EPI)NonAf POC Glucometer 291 282 250 Random Glucose Calcium Total Bilirubin AST ALT Alkaline Phosphatase C-Reactive Protein Total Protein Albumin Triglycerides Cholesterol Total LDL Cholesterol HDL Cholesterol Total Amylase Lipase 02/06/19 02/06/19 13:09 14:31 WBC RBC Hgb Hct MCV MCH MCHC RDW Plt Count MPV Absolute Neuts (auto) Neutrophils % Lymphocytes % Monocytes % Eosinophils % Basophils % Nucleated RBC % Sodium Potassium Chloride Carbon Dioxide Anion Gap BUN Creatinine Est GFR (CKD-EPI)AfAm Est GFR (CKD-EPI)NonAf POC Glucometer 262 270 Random Glucose Calcium Total Bilirubin AST ALT Alkaline Phosphatase C-Reactive Protein Total Protein Albumin Triglycerides Cholesterol Total LDL Cholesterol HDL Cholesterol Total Amylase Lipase Active Medications Generic Name Dose Route Start Last Admin Trade Name Freq PRN Reason Stop Dose Admin Acetaminophen 1,000 mg 02/03/19 22:45 02/04/19 04:45 Ofirmev Injection - IVPB 1,000 mg Q6H PRN Administration PAIN LEVEL 4 - 6 Chlorhexidine Gluconate 1 applic 02/03/19 22:00 02/05/19 21:09 Hibiclens For Decolonization - TP 1 applic HS [facility] Administration Diphenhydramine HCl 25 mg 02/06/19 11:17 02/06/19 11:26 Benadryl - PO 25 mg Q6H PRN Administration FOR ITCHING Fenofibric Acid 135 mg 02/05/19 10:00 02/06/19 09:48 Trilipix - PO 135 mg DAILY [facility] Administration Heparin Sodium (Porcine) 5,000 unit 02/03/19 22:00 02/06/19 14:34 Heparin - SQ 5,000 unit TID [facility] Administration Insulin Human Regular 100 100 mls @ 14.62 mls/hr 02/03/19 23:50 02/06/19 13: 00 units/ Sodium Chloride IVPB 0.07 units/kg/hr TITR [facility] 6.82 mls/hr Titration Protocol 0.15 UNITS/KG/HR Dextrose/Lactated Ringer's 1,000 mls @ 125 mls/hr 02/06/19 11:15 02/06/19 11: 26 D5-Lr - IV 125 mls/hr ASDIR [facility] Administration Mupirocin 1 applic 02/03/19 22:00 02/06/19 09:49 Bactroban Ointment (For Decolonization) - NS 02/08/19 21:59 1 applic BID [facility] Administration Nicotine 21 mg 02/05/19 15:45 02/06/19 09:48 Nicoderm Patch - TD 21 mg DAILY [facility] Administration ASSESSMENT/PLAN: This is a 38 year old male with PMH significant for DMII, alcohol abuse, & pancreatitis who presented to the ER with complaints of 1 week of epigastric pain. He was found to have Triglycerides >4000 and was found to have evidence of pancreatitis on CT AP. #Endocrine - Blood glucose found to be 154 at 5AM, insulin held for now and D5LR @ 125 started - Will continue to monitor #GI - TG 1775, downtrending, target is 500-750. - Continue to monitor TG. May require apharesis if TG stabilizes at a level above the target - Continue Finofibric acid 135 mg PO OD - Patient has been consuming food brought by his family #Skin - Complaining of generalized itching - Started on Benadryl 25mg PO Q6H #FEN - Diet changed from clear liquids to full liquids form - Ca 8.2, up form 7.2 yesterday - Started on D5LR @ 125 after POC BG was found to be 154 #DVT PE - Heparin 5000SQ #Code Status - Full code #Dispo - Continue to monitor TG Visit type - Emergency Visit Emergency Visit: Yes ED Registration Date: 02/03/19 Care time: The patient presented to the Emergency Department on the above date and was hospitalized for further evaluation of their emergent condition. - New Patient This patient is new to me today: Yes Date on this admission: 02/07/19 - Critical Care Critical Care patient: Yes Total Critical Care Time (in minutes): 36 Critical Care Statement: The care of this patient involved high complexity decision making to prevent further life threatening deterioration of the patient 's condition and/or to evaluate & treat vital organ system(s) failure or risk of failure. ATTENDING PHYSICIAN STATEMENT I saw and evaluated the patient. I reviewed the resident's note and discussed the case with the resident. I agree with the resident's findings and plan as documented. SUBJECTIVE: OBJECTIVE: ASSESSMENT AND PLAN:
--- NOTE | 2019-02-06 15:32 | PN ---
Progress Note (short form) - Note Progress Note: GI f/u Patient seen/examined labs reviewed Pain free since yesterday am. Hungry. Abdomen soft NT ND Would recommend advancing diet to low fat/cholesterol - ordered for dinner. ETOH cessation discussed
[2019-02-06] MEDS ORDERED: diphenhydrAMINE HCL 25 MG CAPSULE (FP) PO ONE (15:59)
[2019-02-06 22:07] LABS: HEP B CORE AB, TOT Negative (Negative)
--- NOTE | 2019-02-06 22:17 | PN ---
Progress Note, Physician - Current Medication List Current Medications: Active Medications Acetaminophen (Ofirmev Injection -) 1,000 mg IVPB Q6H PRN PRN Reason: PAIN LEVEL 4 - 6 Last Admin: 02/04/19 04:45 Dose: 1,000 mg Chlorhexidine Gluconate (Hibiclens For Decolonization -) 1 applic TP HS [facility] Last Admin: 02/05/19 21:09 Dose: 1 applic Diphenhydramine HCl (Benadryl -) 25 mg PO Q6H PRN PRN Reason: FOR ITCHING Last Admin: 02/06/19 11:26 Dose: 25 mg Fenofibric Acid (Trilipix -) 135 mg PO DAILY [facility] Last Admin: 02/06/19 09:48 Dose: 135 mg Heparin Sodium (Porcine) (Heparin -) 5,000 unit SQ TID [facility] Last Admin: 02/06/19 14:34 Dose: 5,000 unit Insulin Human Regular 100 (units/ Sodium Chloride) 100 mls @ 14.62 mls/hr IVPB TITR [facility]; Protocol Last Titration: 02/06/19 18:42 Dose: 0.03 units/kg/hr, 3 mls/hr Dextrose/Lactated Ringer's (D5-Lr -) 1,000 mls @ 125 mls/hr IV ASDIR [facility] Last Admin: 02/06/19 11:26 Dose: 125 mls/hr Mupirocin (Bactroban Ointment (For Decolonization) -) 1 applic NS BID [facility] Stop: 02/08/19 21:59 Last Admin: 02/06/19 09:49 Dose: 1 applic Nicotine (Nicoderm Patch -) 21 mg TD DAILY [facility] Last Admin: 02/06/19 09:48 Dose: 21 mg - Objective Vital Signs: Vital Signs Temperature 98.6 F 02/06/19 19:35 Pulse Rate 91 H 02/06/19 19:35 Respiratory Rate 34 H 02/06/19 19:35 Blood Pressure 125/77 02/06/19 19:35 O2 Sat by Pulse Oximetry (%) 99 02/06/19 09:00 Labs: CBC, BMP 02/06/19 05:40 02/06/19 05:40 Problem List - Problems (1) Pancreatitis Code(s): K85.90 - ACUTE PANCREATITIS WITHOUT NECROSIS OR INFECTION, UNSP (2) Uncontrolled diabetes mellitus Code(s): E11.65 - TYPE 2 DIABETES MELLITUS WITH HYPERGLYCEMIA (3) Elevated triglycerides with high cholesterol Code(s): E78.2 - MIXED HYPERLIPIDEMIA
[2019-02-06] MEDS: CHLORHEXIDINE GLUCONATE 4% CLEANSER FOR DECOLONIZATION TP SCH (22:21)
[2019-02-07] MEDS: HEPARIN NA (PORCINE) 5,000 UNITS/ML 1ML VIAL SQ SCH ×3 (06:23→21:40)
[2019-02-07 07:09] LABS: BASO % 0.8 % (0-2.0); EOS % 4.7 % (0-4.5); HEMATOCRIT 29.5 % (35.4-49); HEMOGLOBIN 9.6 GM/dL (11.7-16.9); LYMPH % 31.9 % (8-40); MCH 23.5 pg (25.7-33.7); MCHC 32.7 g/dl (32.0-35.9); MEAN CELL VOLUME 71.9 fl (80-96); MEAN PLT VOLUME 8.5 fl (7.5-11.1); NEUT % 54.6 % (42.8-82.8); PLATELET COUNT 309 K/MM3 (134-434); RBC 4.09 M/mm3 (4.00-5.60); RDW 16.8 % (11.9-15.9); WHITE BLOOD COUNT 4.7 K/mm3 (4.0-10.0)
[2019-02-07 07:31] LABS: CHOLESTEROL 352 mg/dL (50-200); HDL CHOLESTEROL 28 mg/dL (40-60); LDL CHOLESTEROL (ONLY SJRH) 141 mg/dL (5-100); TRIGLYCERIDES 895 mg/dL (0-150)
[2019-02-07 07:34] LABS: AMYLASE 142 U/L (25-115); LIPASE 149 U/L (73-393)
[2019-02-07 07:39] LABS: ALBUMIN 2.3 g/dl (3.4-5.0); BILIRUBIN,TOTAL 0.3 mg/dL (0.2-1); BLOOD UREA NITROGEN 6.1 mg/dL (7-18); CALCIUM 8.5 mg/dL (8.5-10.1); CREATININE 0.7 mg/dL (0.55-1.3); POTASSIUM 3.7 mmol/L (3.5-5.1); TOT PROT 5.5 g/dl (6.4-8.2)
[2019-02-07] MEDS: MUPIROCIN 2% TOPICAL OINTMENT FOR DECOLONIZATION NS SCH ×2 (10:35→21:40)
[2019-02-07] MEDS ORDERED: PT OWN MED DRAWER 7, Y5N ONE (10:37)
[2019-02-07] MEDS: FENOFIBRIC ACID 135 MG CAP PO SCH (10:38)
[2019-02-07] MEDS: NICOTINE 21 MG/24 HOURS TOPICAL PATCH TD SCH (10:38)
--- NOTE | 2019-02-07 11:57 | PN ---
Teaching Attending Note Name of Resident: Balbir Hatfield ATTENDING PHYSICIAN STATEMENT I saw and evaluated the patient. I reviewed the resident's note and discussed the case with the resident. I agree with the resident's findings and plan as documented. SUBJECTIVE: Patient seen and examined in the ICU. Reports abdominal pain is resolved. Triglycerides still down trending, 895. No CP or SOB. Intake & Output 02/04/19 02/05/19 02/06/19 02/07/19 23:59 23:59 23:59 23:59 Intake Total 3676 3651 2482 Output Total 2700 1950 Balance 976 1701 2482 Weight 203 lb 216 lb 1.6 oz 211 lb 1.6 oz Last Vital Signs Temp Pulse Resp BP Pulse Ox 97.8 F 86 15 131/82 100 02/07/19 06:00 02/07/19 08:00 02/07/19 08:00 02/07/19 06:00 02/07/19 08:29 Active Medications Acetaminophen (Ofirmev Injection -) 1,000 mg IVPB Q6H PRN PRN Reason: PAIN LEVEL 4 - 6 Last Admin: 02/04/19 04:45 Dose: 1,000 mg Chlorhexidine Gluconate (Hibiclens For Decolonization -) 1 applic TP HS [facility] Last Admin: 02/06/19 22:21 Dose: 1 applic Diphenhydramine HCl (Benadryl -) 25 mg PO Q6H PRN PRN Reason: FOR ITCHING Last Admin: 02/06/19 11:26 Dose: 25 mg Fenofibric Acid (Trilipix -) 135 mg PO DAILY [facility] Last Admin: 02/07/19 10:38 Dose: 135 mg Heparin Sodium (Porcine) (Heparin -) 5,000 unit SQ TID [facility] Last Admin: 02/07/19 06:23 Dose: 5,000 unit Insulin Human Regular 100 (units/ Sodium Chloride) 100 mls @ 14.62 mls/hr IVPB TITR [facility]; Protocol Last Titration: 02/06/19 18:42 Dose: 0.03 units/kg/hr, 3 mls/hr Dextrose/Lactated Ringer's (D5-Lr -) 1,000 mls @ 125 mls/hr IV ASDIR [facility] Last Admin: 02/06/19 11:26 Dose: 125 mls/hr Mupirocin (Bactroban Ointment (For Decolonization) -) 1 applic NS BID [facility] Stop: 02/08/19 21:59 Last Admin: 02/07/19 10:35 Dose: 1 applic Nicotine (Nicoderm Patch -) 21 mg TD DAILY [facility] Last Admin: 02/07/19 10:38 Dose: 21 mg Constitutional: Yes: Awake and alert. NAD Eyes: Yes: WNL, Conjunctiva Clear, EOM Intact HENT: Yes: WNL, Atraumatic, Normocephalic Neck: Yes: WNL, Supple, Trachea Midline Cardiovascular: Yes: WNL, Regular Rate and Rhythm Respiratory: Yes: WNL, Regular, CTA Bilaterally Gastrointestinal: Yes: WNL, Normal Bowel Sounds, Soft Musculoskeletal: Yes: WNL Extremities: Yes: WNL Edema: No Peripheral Pulses WNL: Yes Integumentary: Yes: WNL Neurological: Yes: WNL, Alert, Oriented ...Motor Strength: WNL Psychiatric: Yes: WNL, Alert, Oriented Labs: Laboratory Results - last 24 hr 02/05/19 02/06/19 02/06/19 05:25 12:14 13:09 WBC RBC Hgb Hct MCV MCH MCHC RDW Plt Count MPV Absolute Neuts (auto) Neutrophils % Lymphocytes % Monocytes % Eosinophils % Basophils % Nucleated RBC % Sodium Potassium Chloride Carbon Dioxide Anion Gap BUN Creatinine Est GFR (CKD-EPI)AfAm Est GFR (CKD-EPI)NonAf POC Glucometer 250 262 Random Glucose Calcium Total Bilirubin AST ALT Alkaline Phosphatase Total Protein Albumin Triglycerides Cholesterol Total LDL Cholesterol HDL Cholesterol Total Amylase Lipase Hep A IgM Ab Confirm Negative Hepatitis A Ab Total Positive H Hep Bs Antigen Negative Hep Bs Antibody Reactive Hep B Core Total Ab Negative Hep B Core IgM Ab Negative Hepatitis Be Antibody Negative Hepatitis Be Antigen Negative Hep C Ab Diagnostic <0.1 02/06/19 02/06/19 02/06/19 14:31 15:32 16:31 WBC RBC Hgb Hct MCV MCH MCHC RDW Plt Count MPV Absolute Neuts (auto) Neutrophils % Lymphocytes % Monocytes % Eosinophils % Basophils % Nucleated RBC % Sodium Potassium Chloride Carbon Dioxide Anion Gap BUN Creatinine Est GFR (CKD-EPI)AfAm Est GFR (CKD-EPI)NonAf POC Glucometer 270 225 185 Random Glucose Calcium Total Bilirubin AST ALT Alkaline Phosphatase Total Protein Albumin Triglycerides Cholesterol Total LDL Cholesterol HDL Cholesterol Total Amylase Lipase Hep A IgM Ab Confirm Hepatitis A Ab Total Hep Bs Antigen Hep Bs Antibody Hep B Core Total Ab Hep B Core IgM Ab Hepatitis Be Antibody Hepatitis Be Antigen Hep C Ab Diagnostic 02/06/19 02/06/19 02/06/19 17:41 18:31 20:14 WBC RBC Hgb Hct MCV MCH MCHC RDW Plt Count MPV Absolute Neuts (auto) Neutrophils % Lymphocytes % Monocytes % Eosinophils % Basophils % Nucleated RBC % Sodium Potassium Chloride Carbon Dioxide Anion Gap BUN Creatinine Est GFR (CKD-EPI)AfAm Est GFR (CKD-EPI)NonAf POC Glucometer 148 147 162 Random Glucose Calcium Total Bilirubin AST ALT Alkaline Phosphatase Total Protein Albumin Triglycerides Cholesterol Total LDL Cholesterol HDL Cholesterol Total Amylase Lipase Hep A IgM Ab Confirm Hepatitis A Ab Total Hep Bs Antigen Hep Bs Antibody Hep B Core Total Ab Hep B Core IgM Ab Hepatitis Be Antibody Hepatitis Be Antigen Hep C Ab Diagnostic 02/06/19 02/06/19 02/07/19 21:33 23:02 00:41 WBC RBC Hgb Hct MCV MCH MCHC RDW Plt Count MPV Absolute Neuts (auto) Neutrophils % Lymphocytes % Monocytes % Eosinophils % Basophils % Nucleated RBC % Sodium Potassium Chloride Carbon Dioxide Anion Gap BUN Creatinine Est GFR (CKD-EPI)AfAm Est GFR (CKD-EPI)NonAf POC Glucometer 208 197 198 Random Glucose Calcium Total Bilirubin AST ALT Alkaline Phosphatase Total Protein Albumin Triglycerides Cholesterol Total LDL Cholesterol HDL Cholesterol Total Amylase Lipase Hep A IgM Ab Confirm Hepatitis A Ab Total Hep Bs Antigen Hep Bs Antibody Hep B Core Total Ab Hep B Core IgM Ab Hepatitis Be Antibody Hepatitis Be Antigen Hep C Ab Diagnostic 02/07/19 02/07/19 02/07/19 02:31 04:54 06:03 WBC 4.7 RBC 4.09 Hgb 9.6 L Hct 29.5 L MCV 71.9 L MCH 23.5 L MCHC 32.7 RDW 16.8 H Plt Count 309 MPV 8.5 Absolute Neuts (auto) 2.5 Neutrophils % 54.6 D Lymphocytes % 31.9 Monocytes % 8.0 Eosinophils % 4.7 H Basophils % 0.8 Nucleated RBC % 0 Sodium Potassium Chloride Carbon Dioxide Anion Gap BUN Creatinine Est GFR (CKD-EPI)AfAm Est GFR (CKD-EPI)NonAf POC Glucometer 183 178 Random Glucose Calcium Total Bilirubin AST ALT Alkaline Phosphatase Total Protein Albumin Triglycerides Cholesterol Total LDL Cholesterol HDL Cholesterol Total Amylase Lipase Hep A IgM Ab Confirm Hepatitis A Ab Total Hep Bs Antigen Hep Bs Antibody Hep B Core Total Ab Hep B Core IgM Ab Hepatitis Be Antibody Hepatitis Be Antigen Hep C Ab Diagnostic 02/07/19 02/07/19 02/07/19 06:03 06:03 06:03 WBC RBC Hgb Hct MCV MCH MCHC RDW Plt Count MPV Absolute Neuts (auto) Neutrophils % Lymphocytes % Monocytes % Eosinophils % Basophils % Nucleated RBC % Sodium 140 Potassium 3.7 Chloride 107 Carbon Dioxide 26 Anion Gap 7 L BUN 6.1 L Creatinine 0.7 Est GFR (CKD-EPI)AfAm 140.71 Est GFR (CKD-EPI)NonAf 121.41 POC Glucometer Random Glucose 175 H Calcium 8.5 Total Bilirubin 0.3 AST 35 ALT 40 Alkaline Phosphatase 70 Total Protein 5.5 L Albumin 2.3 L Triglycerides 895 H Cholesterol 352 H Total LDL Cholesterol 141 H HDL Cholesterol 28 L Total Amylase 142 H Lipase 149 Hep A IgM Ab Confirm Hepatitis A Ab Total Hep Bs Antigen Hep Bs Antibody Hep B Core Total Ab Hep B Core IgM Ab Hepatitis Be Antibody Hepatitis Be Antigen Hep C Ab Diagnostic 02/07/19 02/07/19 02/07/19 06:58 08:05 10:18 WBC RBC Hgb Hct MCV MCH MCHC RDW Plt Count MPV Absolute Neuts (auto) Neutrophils % Lymphocytes % Monocytes % Eosinophils % Basophils % Nucleated RBC % Sodium Potassium Chloride Carbon Dioxide Anion Gap BUN Creatinine Est GFR (CKD-EPI)AfAm Est GFR (CKD-EPI)NonAf POC Glucometer 157 178 204 Random Glucose Calcium Total Bilirubin AST ALT Alkaline Phosphatase Total Protein Albumin Triglycerides Cholesterol Total LDL Cholesterol HDL Cholesterol Total Amylase Lipase Hep A IgM Ab Confirm Hepatitis A Ab Total Hep Bs Antigen Hep Bs Antibody Hep B Core Total Ab Hep B Core IgM Ab Hepatitis Be Antibody Hepatitis Be Antigen Hep C Ab Diagnostic 02/07/19 11:27 WBC RBC Hgb Hct MCV MCH MCHC RDW Plt Count MPV Absolute Neuts (auto) Neutrophils % Lymphocytes % Monocytes % Eosinophils % Basophils % Nucleated RBC % Sodium Potassium Chloride Carbon Dioxide Anion Gap BUN Creatinine Est GFR (CKD-EPI)AfAm Est GFR (CKD-EPI)NonAf POC Glucometer 220 Random Glucose Calcium Total Bilirubin AST ALT Alkaline Phosphatase Total Protein Albumin Triglycerides Cholesterol Total LDL Cholesterol HDL Cholesterol Total Amylase Lipase Hep A IgM Ab Confirm Hepatitis A Ab Total Hep Bs Antigen Hep Bs Antibody Hep B Core Total Ab Hep B Core IgM Ab Hepatitis Be Antibody Hepatitis Be Antigen Hep C Ab Diagnostic Problem List - Problems (1) Elevated triglycerides with high cholesterol Code(s): E78.2 - MIXED HYPERLIPIDEMIA (2) Pancreatitis Code(s): K85.90 - ACUTE PANCREATITIS WITHOUT NECROSIS OR INFECTION, UNSP Assessment/Plan Pancreatitis Hypertriglyceridemia DM ETOH PLAN: -Insulin drip -PO as tolerated -IVF: D5LR -Follow blood sugars -Trend Triglycerides -Trend LFTs -ICU monitoring while on IV Insulin drip Dr Franklin
[2019-02-07] MEDS: DEXTROSE 5%-LACTATED RINGERS 1,000 ML IV SCH ×3 (12:00→23:30)
--- NOTE | 2019-02-07 13:32 | PN ---
Physical Exam: SUBJECTIVE: Patient seen and examined at bedside. No acute events overnight. Patient only complains of left wrist pain that started overnight. He denies any stomach pain, nausea, vomiting. He is tolerating oral intake well. OBJECTIVE: Vital Signs Period Temp Pulse Resp BP Sys/[place] Pulse Ox Last 24 Hr 97.8 F-98.6 F 66-91 13-34 112-144/73-103 100-100 GENERAL: The patient is awake, alert, and fully oriented, in no acute distress. HEAD: Normal with no signs of trauma. EYES: PERRL, EOMI. ENT: moist mucous membranes. NECK: Trachea midline, full range of motion, supple. LUNGS: Breath sounds equal, clear to auscultation bilaterally, no wheezes, no crackles, no accessory muscle use. HEART: Regular rate and rhythm, S1, S2 without murmur, rub or gallop. ABDOMEN: Soft, nontender, nondistended, normoactive bowel sounds, no guarding, no rebound, no hepatosplenomegaly, no masses. EXTREMITIES: 2+ pulses, warm, well-perfused, no edema. NEUROLOGICAL: 5/5 strength upper and lower extremities, grossly normal sensation. Normal speech, gait not observed. PSYCH: Normal mood, normal affect. SKIN: Warm, dry, normal turgor, no rashes or lesions noted Laboratory Results - last 24 hr 02/05/19 02/06/19 02/06/19 05:25 14:31 15:32 WBC RBC Hgb Hct MCV MCH MCHC RDW Plt Count MPV Absolute Neuts (auto) Neutrophils % Lymphocytes % Monocytes % Eosinophils % Basophils % Nucleated RBC % Sodium Potassium Chloride Carbon Dioxide Anion Gap BUN Creatinine Est GFR (CKD-EPI)AfAm Est GFR (CKD-EPI)NonAf POC Glucometer 270 225 Random Glucose Calcium Total Bilirubin AST ALT Alkaline Phosphatase Total Protein Albumin Triglycerides Cholesterol Total LDL Cholesterol HDL Cholesterol Total Amylase Lipase Hep A IgM Ab Confirm Negative Hepatitis A Ab Total Positive H Hep Bs Antigen Negative Hep Bs Antibody Reactive Hep B Core Total Ab Negative Hep B Core IgM Ab Negative Hepatitis Be Antibody Negative Hepatitis Be Antigen Negative Hep C Ab Diagnostic <0.1 02/06/19 02/06/19 02/06/19 16:31 17:41 18:31 WBC RBC Hgb Hct MCV MCH MCHC RDW Plt Count MPV Absolute Neuts (auto) Neutrophils % Lymphocytes % Monocytes % Eosinophils % Basophils % Nucleated RBC % Sodium Potassium Chloride Carbon Dioxide Anion Gap BUN Creatinine Est GFR (CKD-EPI)AfAm Est GFR (CKD-EPI)NonAf POC Glucometer 185 148 147 Random Glucose Calcium Total Bilirubin AST ALT Alkaline Phosphatase Total Protein Albumin Triglycerides Cholesterol Total LDL Cholesterol HDL Cholesterol Total Amylase Lipase Hep A IgM Ab Confirm Hepatitis A Ab Total Hep Bs Antigen Hep Bs Antibody Hep B Core Total Ab Hep B Core IgM Ab Hepatitis Be Antibody Hepatitis Be Antigen Hep C Ab Diagnostic 02/06/19 02/06/19 02/06/19 20:14 21:33 23:02 WBC RBC Hgb Hct MCV MCH MCHC RDW Plt Count MPV Absolute Neuts (auto) Neutrophils % Lymphocytes % Monocytes % Eosinophils % Basophils % Nucleated RBC % Sodium Potassium Chloride Carbon Dioxide Anion Gap BUN Creatinine Est GFR (CKD-EPI)AfAm Est GFR (CKD-EPI)NonAf POC Glucometer 162 208 197 Random Glucose Calcium Total Bilirubin AST ALT Alkaline Phosphatase Total Protein Albumin Triglycerides Cholesterol Total LDL Cholesterol HDL Cholesterol Total Amylase Lipase Hep A IgM Ab Confirm Hepatitis A Ab Total Hep Bs Antigen Hep Bs Antibody Hep B Core Total Ab Hep B Core IgM Ab Hepatitis Be Antibody Hepatitis Be Antigen Hep C Ab Diagnostic 02/07/19 02/07/19 02/07/19 00:41 02:31 04:54 WBC RBC Hgb Hct MCV MCH MCHC RDW Plt Count MPV Absolute Neuts (auto) Neutrophils % Lymphocytes % Monocytes % Eosinophils % Basophils % Nucleated RBC % Sodium Potassium Chloride Carbon Dioxide Anion Gap BUN Creatinine Est GFR (CKD-EPI)AfAm Est GFR (CKD-EPI)NonAf POC Glucometer 198 183 178 Random Glucose Calcium Total Bilirubin AST ALT Alkaline Phosphatase Total Protein Albumin Triglycerides Cholesterol Total LDL Cholesterol HDL Cholesterol Total Amylase Lipase Hep A IgM Ab Confirm Hepatitis A Ab Total Hep Bs Antigen Hep Bs Antibody Hep B Core Total Ab Hep B Core IgM Ab Hepatitis Be Antibody Hepatitis Be Antigen Hep C Ab Diagnostic 02/07/19 02/07/19 02/07/19 06:03 06:03 06:03 WBC 4.7 RBC 4.09 Hgb 9.6 L Hct 29.5 L MCV 71.9 L MCH 23.5 L MCHC 32.7 RDW 16.8 H Plt Count 309 MPV 8.5 Absolute Neuts (auto) 2.5 Neutrophils % 54.6 D Lymphocytes % 31.9 Monocytes % 8.0 Eosinophils % 4.7 H Basophils % 0.8 Nucleated RBC % 0 Sodium 140 Potassium 3.7 Chloride 107 Carbon Dioxide 26 Anion Gap 7 L BUN 6.1 L Creatinine 0.7 Est GFR (CKD-EPI)AfAm 140.71 Est GFR (CKD-EPI)NonAf 121.41 POC Glucometer Random Glucose 175 H Calcium 8.5 Total Bilirubin 0.3 AST 35 ALT 40 Alkaline Phosphatase 70 Total Protein 5.5 L Albumin 2.3 L Triglycerides Cholesterol Total LDL Cholesterol HDL Cholesterol Total Amylase 142 H Lipase 149 Hep A IgM Ab Confirm Hepatitis A Ab Total Hep Bs Antigen Hep Bs Antibody Hep B Core Total Ab Hep B Core IgM Ab Hepatitis Be Antibody Hepatitis Be Antigen Hep C Ab Diagnostic 02/07/19 02/07/19 02/07/19 06:03 06:58 08:05 WBC RBC Hgb Hct MCV MCH MCHC RDW Plt Count MPV Absolute Neuts (auto) Neutrophils % Lymphocytes % Monocytes % Eosinophils % Basophils % Nucleated RBC % Sodium Potassium Chloride Carbon Dioxide Anion Gap BUN Creatinine Est GFR (CKD-EPI)AfAm Est GFR (CKD-EPI)NonAf POC Glucometer 157 178 Random Glucose Calcium Total Bilirubin AST ALT Alkaline Phosphatase Total Protein Albumin Triglycerides 895 H Cholesterol 352 H Total LDL Cholesterol 141 H HDL Cholesterol 28 L Total Amylase Lipase Hep A IgM Ab Confirm Hepatitis A Ab Total Hep Bs Antigen Hep Bs Antibody Hep B Core Total Ab Hep B Core IgM Ab Hepatitis Be Antibody Hepatitis Be Antigen Hep C Ab Diagnostic 02/07/19 02/07/19 02/07/19 10:18 11:27 12:03 WBC RBC Hgb Hct MCV MCH MCHC RDW Plt Count MPV Absolute Neuts (auto) Neutrophils % Lymphocytes % Monocytes % Eosinophils % Basophils % Nucleated RBC % Sodium Potassium Chloride Carbon Dioxide Anion Gap BUN Creatinine Est GFR (CKD-EPI)AfAm Est GFR (CKD-EPI)NonAf POC Glucometer 204 220 210 Random Glucose Calcium Total Bilirubin AST ALT Alkaline Phosphatase Total Protein Albumin Triglycerides Cholesterol Total LDL Cholesterol HDL Cholesterol Total Amylase Lipase Hep A IgM Ab Confirm Hepatitis A Ab Total Hep Bs Antigen Hep Bs Antibody Hep B Core Total Ab Hep B Core IgM Ab Hepatitis Be Antibody Hepatitis Be Antigen Hep C Ab Diagnostic 02/07/19 13:16 WBC RBC Hgb Hct MCV MCH MCHC RDW Plt Count MPV Absolute Neuts (auto) Neutrophils % Lymphocytes % Monocytes % Eosinophils % Basophils % Nucleated RBC % Sodium Potassium Chloride Carbon Dioxide Anion Gap BUN Creatinine Est GFR (CKD-EPI)AfAm Est GFR (CKD-EPI)NonAf POC Glucometer 260 Random Glucose Calcium Total Bilirubin AST ALT Alkaline Phosphatase Total Protein Albumin Triglycerides Cholesterol Total LDL Cholesterol HDL Cholesterol Total Amylase Lipase Hep A IgM Ab Confirm Hepatitis A Ab Total Hep Bs Antigen Hep Bs Antibody Hep B Core Total Ab Hep B Core IgM Ab Hepatitis Be Antibody Hepatitis Be Antigen Hep C Ab Diagnostic Active Medications Generic Name Dose Route Start Last Admin Trade Name Freq PRN Reason Stop Dose Admin Acetaminophen 1,000 mg 02/03/19 22:45 02/04/19 04:45 Ofirmev Injection - IVPB 1,000 mg Q6H PRN Administration PAIN LEVEL 4 - 6 Chlorhexidine Gluconate 1 applic 02/03/19 22:00 02/06/19 22:21 Hibiclens For Decolonization - TP 1 applic HS [facility] Administration Diphenhydramine HCl 25 mg 02/06/19 11:17 02/06/19 11:26 Benadryl - PO 25 mg Q6H PRN Administration FOR ITCHING Fenofibric Acid 135 mg 02/05/19 10:00 02/07/19 10:38 Trilipix - PO 135 mg DAILY [facility] Administration Heparin Sodium (Porcine) 5,000 unit 02/03/19 22:00 02/07/19 06:23 Heparin - SQ 5,000 unit TID [facility] Administration Insulin Human Regular 100 100 mls @ 14.62 mls/hr 02/03/19 23:50 02/07/19 12: 00 units/ Sodium Chloride IVPB 0.05 units/kg/hr TITR [facility] 5 mls/hr Titration Protocol 0.15 UNITS/KG/HR Dextrose/Lactated Ringer's 1,000 mls @ 125 mls/hr 02/06/19 11:15 02/06/19 11: 26 D5-Lr - IV 125 mls/hr ASDIR [facility] Administration Mupirocin 1 applic 02/03/19 22:00 02/07/19 10:35 Bactroban Ointment (For Decolonization) - NS 02/08/19 21:59 1 applic BID [facility] Administration Nicotine 21 mg 02/05/19 15:45 02/07/19 10:38 Nicoderm Patch - TD 21 mg DAILY [facility] Administration ASSESSMENT/PLAN: 38 y/o/m with PMH significant for DMII, alcohol abuse, & pancreatitis who presented to the ER with complaints of 1 week of epigastric pain. He was found to have Triglycerides >4000 and was found to have evidence of pancreatitis on CT abd&pelvis. #Endocrine - Blood glucose at 175 on CMP, last POC at 260. - Will continue to monitor, patient on Insulin drip still. #GI - TG down to 895, downtrending, target is 500-750. - Continue to monitor TG. Unlikely that patient will require apharesis. - Continue Finofibric acid 135 mg PO OD - Discussed with patient to adhere to diet suggested by hospital to avoid increasing TG level. - GI advanced diet to low fat/cholesterol diet. #Skin - Complaining of generalized itching - Started on Benadryl 25mg PO Q6H #FEN - low fat/cholesterol diet started - Ca at 8.5. Corrected Ca at 9.9. - D5LR @ 125 #DVT PE - Heparin 5000SQ #Code Status - Full code Visit type - Emergency Visit Emergency Visit: Yes ED Registration Date: 02/03/19 Care time: The patient presented to the Emergency Department on the above date and was hospitalized for further evaluation of their emergent condition. - New Patient This patient is new to me today: Yes Date on this admission: 02/08/19 - Critical Care Critical Care patient: Yes Total Critical Care Time (in minutes): 36 Critical Care Statement: The care of this patient involved high complexity decision making to prevent further life threatening deterioration of the patient 's condition and/or to evaluate & treat vital organ system(s) failure or risk of failure. ATTENDING PHYSICIAN STATEMENT I saw and evaluated the patient. I reviewed the resident's note and discussed the case with the resident. I agree with the resident's findings and plan as documented. SUBJECTIVE: OBJECTIVE: ASSESSMENT AND PLAN:
[2019-02-07] MEDS: INSULIN REGULAR 100 UNITS in SODIUM CHLORIDE 99 ML IVPB SCH (13:41)
[2019-02-07] MEDS ORDERED: ACETAMINOPHEN 325 MG TABLET (FP) PO PRN (15:09)
--- NOTE | 2019-02-07 20:29 | PN ---
Progress Note, Physician History of Present Illness: Pt denies any abdominal pain and has not required any pain meds - Current Medication List Current Medications: Active Medications Acetaminophen (Tylenol -) 650 mg PO Q6H PRN PRN Reason: PAIN LEVEL 4 - 6 Chlorhexidine Gluconate (Hibiclens For Decolonization -) 1 applic TP HS [facility] Last Admin: 02/06/19 22:21 Dose: 1 applic Diphenhydramine HCl (Benadryl -) 25 mg PO Q6H PRN PRN Reason: FOR ITCHING Last Admin: 02/06/19 11:26 Dose: 25 mg Fenofibric Acid (Trilipix -) 135 mg PO DAILY [facility] Last Admin: 02/07/19 10:38 Dose: 135 mg Heparin Sodium (Porcine) (Heparin -) 5,000 unit SQ TID [facility] Last Admin: 02/07/19 13:40 Dose: 5,000 unit Insulin Human Regular 100 (units/ Sodium Chloride) 100 mls @ 14.62 mls/hr IVPB TITR [facility]; Protocol Last Titration: 02/07/19 19:00 Dose: 0.06 units/kg/hr, 6 mls/hr Dextrose/Lactated Ringer's (D5-Lr -) 1,000 mls @ 75 mls/hr IV ASDIR [facility] Last Admin: 02/07/19 20:10 Dose: Not Given Mupirocin (Bactroban Ointment (For Decolonization) -) 1 applic NS BID [facility] Stop: 02/08/19 21:59 Last Admin: 02/07/19 10:35 Dose: 1 applic Nicotine (Nicoderm Patch -) 21 mg TD DAILY [facility] Last Admin: 02/07/19 10:38 Dose: 21 mg - Objective Vital Signs: Vital Signs Temperature 98.6 F 02/07/19 18:00 Pulse Rate 76 02/07/19 18:00 Respiratory Rate 16 02/07/19 18:00 Blood Pressure 144/92 02/07/19 18:00 O2 Sat by Pulse Oximetry (%) 100 02/07/19 08:29 Neck: Yes: WNL, Supple Cardiovascular: Yes: WNL, Regular Rate and Rhythm Respiratory: Yes: WNL, Regular, CTA Bilaterally Gastrointestinal: Yes: WNL, Normal Bowel Sounds, Soft Extremities: Yes: WNL Edema: No Labs: CBC, BMP 02/07/19 06:03 02/07/19 06:03 Problem List - Problems (1) Pancreatitis Assessment/Plan: Diet advanced and pt toelrating Amylase/lipase are normal Spoke to pt at length about need for compliance with diet and meds Code(s): K85.90 - ACUTE PANCREATITIS WITHOUT NECROSIS OR INFECTION, UNSP (2) Uncontrolled diabetes mellitus Assessment/Plan: Cont insulin drip Code(s): E11.65 - TYPE 2 DIABETES MELLITUS WITH HYPERGLYCEMIA (3) Elevated triglycerides with high cholesterol Assessment/Plan: Cont fenofibrate Code(s): E78.2 - MIXED HYPERLIPIDEMIA
--- NOTE | 2019-02-07 20:46 | PN.GI ---
GI Progress Note Subjective: No abdominal pain Tolerating PO - Objective Vital Signs: Vital Signs Temperature 98.6 F 02/07/19 18:00 Pulse Rate 66 02/07/19 20:00 Respiratory Rate 17 02/07/19 20:00 Blood Pressure 149/84 02/07/19 20:00 O2 Sat by Pulse Oximetry (%) 100 02/07/19 20:35 Constitutional: Calm Eyes: No: Sclera Icterus Cardiovascular: Yes: Regular Rate and Rhythm Respiratory: Yes: CTA Bilaterally, Stridor Gastrointestinal Inspection: No: Distention ...Auscultate: Yes: Normoactive Bowel Sounds ...Palpate: Yes: Soft. No: Hepatomegaly, Splenomegaly, Tenderness Edema: No (No LE edema) Neurological: Yes: Alert Labs: CBC, BMP 02/07/19 06:03 02/07/19 06:03 Hepatic Panel Total Bilirubin 0.3 mg/dL (0.2-1) 02/07/19 06:03 Direct Bilirubin 0.1 mg/dL (0.0-0.2) 02/03/19 21:23 AST 35 U/L (15-37) 02/07/19 06:03 ALT 40 U/L (13-61) 02/07/19 06:03 Alkaline Phosphatase 70 U/L (45-117) 02/07/19 06:03 Albumin 2.3 g/dl (3.4-5.0) L 02/07/19 06:03 Problem List - Problems (1) Pancreatitis Assessment/Plan: Clinically improved hypertriglyceridemia and diabetic control being managed by endocrine Reenforced the need for complete smoking and alcohol cessation Anemia: suspect dilutional however microcytic with normal RBC. ? thalassemia. Further w/u per primary team Outpatient follow-up. Advised patient to call office to make appointment upon discharge Problems reviewed: Yes Code(s): K85.90 - ACUTE PANCREATITIS WITHOUT NECROSIS OR INFECTION, UNSP Qualifiers: Chronicity: acute Pancreatitis type: unspecified pancreatitis type Acute pancreatitis complication: no infection or necrosis Qualified Code(s): K85.90 - Acute pancreatitis without necrosis or infection, unspecified
[2019-02-07 20:52] LABS: CHOLESTEROL 324 mg/dL (50-200); HDL CHOLESTEROL 22 mg/dL (40-60); LDL CHOLESTEROL (ONLY SJRH) 138 mg/dL (5-100); TRIGLYCERIDES 1241 mg/dL (0-150)
[2019-02-07] MEDS: CHLORHEXIDINE GLUCONATE 4% CLEANSER FOR DECOLONIZATION TP SCH (21:42)
[2019-02-08] MEDS: HEPARIN NA (PORCINE) 5,000 UNITS/ML 1ML VIAL SQ SCH ×3 (06:14→21:41)
[2019-02-08 06:25] LABS: BASO % 0.9 % (0-2.0); EOS % 3.6 % (0-4.5); HEMATOCRIT 30.5 % (35.4-49); HEMOGLOBIN 9.8 GM/dL (11.7-16.9); LYMPH % 25.6 % (8-40); MCH 23.2 pg (25.7-33.7); MCHC 32.2 g/dl (32.0-35.9); MEAN CELL VOLUME 71.9 fl (80-96); MEAN PLT VOLUME 8.4 fl (7.5-11.1); MONO % 10.7 % (3.8-10.2); NEUT % 59.2 % (42.8-82.8); PLATELET COUNT 308 K/MM3 (134-434); RBC 4.24 M/mm3 (4.00-5.60); RDW 17.3 % (11.9-15.9)
[2019-02-08 07:10] LABS: ALBUMIN 2.4 g/dl (3.4-5.0); BILIRUBIN,TOTAL 0.3 mg/dL (0.2-1); BLOOD UREA NITROGEN 5.8 mg/dL (7-18); CALCIUM 8.3 mg/dL (8.5-10.1); CREATININE 0.7 mg/dL (0.55-1.3); POTASSIUM 3.5 mmol/L (3.5-5.1)
--- NOTE | 2019-02-08 07:30 | PN ---
Physical Exam: SUBJECTIVE: Patient seen and examined by the [facility]. No overnight complaints, tolerated solid diet last night, last BM at 9PM last night, is passing gas. OBJECTIVE: Vital Signs Period Temp Pulse Resp BP Sys/Dumont Pulse Ox Last 24 Hr 98 F-98.6 F 62-86 12- 120-149/73-92 100-100 GENERAL: The patient is awake, alert, and fully oriented, in no acute distress. HEAD: Normal with no signs of trauma. EYES: PERRL, extraocular movements intact, sclera anicteric, conjunctiva clear. No ptosis. ENT: Ears normal, nares patent, oropharynx clear without exudates, moist mucous membranes. NECK: Trachea midline, full range of motion, supple. LUNGS: Breath sounds equal, clear to auscultation bilaterally, no wheezes, no crackles, no accessory muscle use. HEART: Regular rate and rhythm, S1, S2 without murmur, rub or gallop. ABDOMEN: Soft, nontender, nondistended, normoactive bowel sounds, no guarding, no rebound, no hepatosplenomegaly, no masses. EXTREMITIES: 2+ pulses, warm, well-perfused, no edema. NEUROLOGICAL: Cranial nerves II through XII grossly intact. Normal speech, gait not observed. PSYCH: Normal mood, normal affect. SKIN: Warm, dry, normal turgor, no rashes or lesions noted Laboratory Results - last 24 hr 02/07/19 02/07/19 02/07/19 06:03 06:03 06:03 Sodium 140 Potassium 3.7 Chloride 107 Carbon Dioxide 26 Anion Gap 7 L BUN 6.1 L Creatinine 0.7 Est GFR (CKD-EPI)AfAm 140.71 Est GFR (CKD-EPI)NonAf 121.41 POC Glucometer Random Glucose 175 H Calcium 8.5 Total Bilirubin 0.3 AST 35 ALT 40 Alkaline Phosphatase 70 Total Protein 5.5 L Albumin 2.3 L Triglycerides 895 H Cholesterol 352 H Total LDL Cholesterol 141 H HDL Cholesterol 28 L Total Amylase 142 H Lipase 149 02/07/19 02/07/19 02/07/19 08:05 10:18 11:27 Sodium Potassium Chloride Carbon Dioxide Anion Gap BUN Creatinine Est GFR (CKD-EPI)AfAm Est GFR (CKD-EPI)NonAf POC Glucometer 178 204 220 Random Glucose Calcium Total Bilirubin AST ALT Alkaline Phosphatase Total Protein Albumin Triglycerides Cholesterol Total LDL Cholesterol HDL Cholesterol Total Amylase Lipase 02/07/19 02/07/19 02/07/19 12:03 13:16 14:06 Sodium Potassium Chloride Carbon Dioxide Anion Gap BUN Creatinine Est GFR (CKD-EPI)AfAm Est GFR (CKD-EPI)NonAf POC Glucometer 210 260 284 Random Glucose Calcium Total Bilirubin AST ALT Alkaline Phosphatase Total Protein Albumin Triglycerides Cholesterol Total LDL Cholesterol HDL Cholesterol Total Amylase Lipase 02/07/19 02/07/19 02/07/19 15:41 16:21 17:01 Sodium Potassium Chloride Carbon Dioxide Anion Gap BUN Creatinine Est GFR (CKD-EPI)AfAm Est GFR (CKD-EPI)NonAf POC Glucometer 346 295 264 Random Glucose Calcium Total Bilirubin AST ALT Alkaline Phosphatase Total Protein Albumin Triglycerides Cholesterol Total LDL Cholesterol HDL Cholesterol Total Amylase Lipase 02/07/19 02/07/19 02/07/19 18:08 19:07 19:47 Sodium Potassium Chloride Carbon Dioxide Anion Gap BUN Creatinine Est GFR (CKD-EPI)AfAm Est GFR (CKD-EPI)NonAf POC Glucometer 207 314 Random Glucose Calcium Total Bilirubin AST ALT Alkaline Phosphatase Total Protein Albumin Triglycerides 1241 H Cholesterol 324 H Total LDL Cholesterol 138 H HDL Cholesterol 22 L Total Amylase Lipase 02/07/19 02/07/19 02/07/19 20:07 21:03 21:56 Sodium Potassium Chloride Carbon Dioxide Anion Gap BUN Creatinine Est GFR (CKD-EPI)AfAm Est GFR (CKD-EPI)NonAf POC Glucometer 324 255 241 Random Glucose Calcium Total Bilirubin AST ALT Alkaline Phosphatase Total Protein Albumin Triglycerides Cholesterol Total LDL Cholesterol HDL Cholesterol Total Amylase Lipase 02/07/19 02/08/19 02/08/19 23:08 00:06 01:16 Sodium Potassium Chloride Carbon Dioxide Anion Gap BUN Creatinine Est GFR (CKD-EPI)AfAm Est GFR (CKD-EPI)NonAf POC Glucometer 238 209 177 Random Glucose Calcium Total Bilirubin AST ALT Alkaline Phosphatase Total Protein Albumin Triglycerides Cholesterol Total LDL Cholesterol HDL Cholesterol Total Amylase Lipase 02/08/19 02/08/19 02/08/19 02:09 03:04 04:06 Sodium Potassium Chloride Carbon Dioxide Anion Gap BUN Creatinine Est GFR (CKD-EPI)AfAm Est GFR (CKD-EPI)NonAf POC Glucometer 142 113 87 Random Glucose Calcium Total Bilirubin AST ALT Alkaline Phosphatase Total Protein Albumin Triglycerides Cholesterol Total LDL Cholesterol HDL Cholesterol Total Amylase Lipase 02/08/19 02/08/1902/08/19 05:06 05:54 05:59 Sodium 143 Potassium 3.5 Chloride 109 H Carbon Dioxide 26 Anion Gap 8 BUN 5.8 L Creatinine 0.7 Est GFR (CKD-EPI)AfAm 140.71 Est GFR (CKD-EPI)NonAf 121.41 POC Glucometer 112 118 Random Glucose 122 H Calcium 8.3 L Total Bilirubin 0.3 AST 28 ALT 40 Alkaline Phosphatase 69 Total Protein 6.0 L Albumin 2.4 L Triglycerides 668 H Cholesterol 321 H Total LDL Cholesterol 154 H HDL Cholesterol 27 L Total Amylase 126 H Lipase 157 02/08/19 06:48 Sodium Potassium Chloride Carbon Dioxide Anion Gap BUN Creatinine Est GFR (CKD-EPI)AfAm Est GFR (CKD-EPI)NonAf POC Glucometer 124 Random Glucose Calcium Total Bilirubin AST ALT Alkaline Phosphatase Total Protein Albumin Triglycerides Cholesterol Total LDL Cholesterol HDL Cholesterol Total Amylase Lipase Active Medications Generic Name Dose Route Start Last Admin Trade Name Freq PRN Reason Stop Dose Admin Acetaminophen 650 mg 02/07/19 15:09 Tylenol - PO Q6H PRN PAIN LEVEL 4 - 6 Chlorhexidine Gluconate 1 applic 02/03/19 22:00 02/07/19 21:42 Hibiclens For Decolonization - TP 1 applic HS [facility]IONEL Administration Diphenhydramine HCl 25 mg 02/06/19 11:17 02/06/19 11:26 Benadryl - PO 25 mg Q6H PRN Administration FOR ITCHING Fenofibric Acid 135 mg 02/05/19 10:00 02/07/19 10:38 Trilipix - PO 135 mg DAILY [facility] Administration Heparin Sodium (Porcine) 5,000 unit 02/03/19 22:00 02/08/19 06:14 Heparin - SQ 5,000 unit TID [facility] Administration Insulin Human Regular 100 100 mls @ 14.62 mls/hr 02/03/19 23:50 02/08/19 04: 18 units/ Sodium Chloride IVPB 0.02 units/kg/hr TITR LIONEL 1.95 mls/hr Titration Protocol 0.15 UNITS/KG/HR Dextrose/Lactated Ringer's 1,000 mls @ 75 mls/hr 02/07/19 19:21 02/07/19 23: 30 D5-Lr - IV 75 mls/hr ASDIR [facility]IONEL Administration Mupirocin 1 applic 02/03/19 22:00 02/07/19 21:40 Bactroban Ointment (For Decolonization) - NS 02/08/19 21:59 1 applic BID [facility] Administration Nicotine 21 mg 02/05/19 15:45 02/07/19 10:38 Nicoderm Patch - TD 21 mg DAILY [facility] Administration ASSESSMENT/PLAN: 38 y/o/m with PMH significant for DMII, alcohol abuse, & pancreatitis who presented to the ER with complaints of 1 week of epigastric pain. He was found to have Triglycerides >4000 and was found to have evidence of pancreatitis on CT AP. #Endocrine - Blood glucose at 122 on CMP - Spoke with Dr. Bonilla, recommended D/C insulin drip, Levemir 15 stat and 15 HS, Novolog sliding scale, Lovaza 2 gm BID, agreed with transfer to med/surg #GI - TG down to 895 -> 1241 -> 668 - Continue Finofibric acid 135 mg PO OD - Low fat/cholesterol diet. #Skin - Benadryl 25mg PO Q6H #FEN - Low fat/cholesterol diet - D5LR @ 75 #DVT PE - Heparin 5000SQ #Code Status - Full code #Dispo - Transfer to floor Visit type - Emergency Visit Emergency Visit: Yes ED Registration Date: 02/03/19 Care time: The patient presented to the Emergency Department on the above date and was hospitalized for further evaluation of their emergent condition. - New Patient This patient is new to me today: No - Critical Care Critical Care patient: Yes Total Critical Care Time (in minutes): 37 Critical Care Statement: The care of this patient involved high complexity decision making to prevent further life threatening deterioration of the patient 's condition and/or to evaluate & treat vital organ system(s) failure or risk of failure. ATTENDING PHYSICIAN STATEMENT I saw and evaluated the patient. I reviewed the resident's note and discussed the case with the resident. I agree with the resident's findings and plan as documented. SUBJECTIVE: OBJECTIVE: ASSESSMENT AND PLAN:
[2019-02-08] MEDS ORDERED: PT OWN MED DRAWER 7, Y5N ONE (09:08)
[2019-02-08] MEDS: NICOTINE 21 MG/24 HOURS TOPICAL PATCH TD SCH (10:06)
[2019-02-08] MEDS: MUPIROCIN 2% TOPICAL OINTMENT FOR DECOLONIZATION NS SCH (10:06)
[2019-02-08] MEDS: FENOFIBRIC ACID 135 MG CAP PO SCH (11:00)
--- NOTE | 2019-02-08 11:49 | PN ---
Teaching Attending Note Name of Resident: Marin Yoo ATTENDING PHYSICIAN STATEMENT I saw and evaluated the patient. I reviewed the resident's note and discussed the case with the resident. I agree with the resident's findings and plan as documented. SUBJECTIVE: Pt seen and examined in the ICU. Remains on insulin gtt. Triglycerides trended up overnight. Denies abdominal pain, nausea, vomiting. Tolerating PO. OBJECTIVE: Vital Signs Period Temp Pulse Resp BP Sys/Dumont Pulse Ox Last 24 Hr 98.4 F-98.6 F 62-80 12-29 120-149/69-92 100-100 Intake & Output 02/05/19 02/06/19 02/07/19 02/08/19 23:59 23:59 23:59 23:59 Intake Total 3651 2482 2769 1058 Output Total 1950 Balance 1701 2482 2769 1058 Weight 92.079 kg 98.021 kg 95.753 kg 95.753 kg Gen: NAD at rest Heart: RRR Lung: decreased breath sounds at the bases Abd: soft, nontender Ext: no edema CBC, BMP 02/08/19 05:40 02/08/19 05:54 Active Medications Acetaminophen (Tylenol -) 650 mg PO Q6H PRN PRN Reason: PAIN LEVEL 4 - 6 Chlorhexidine Gluconate (Hibiclens For Decolonization -) 1 applic TP HS [facility] Last Admin: 02/07/19 21:42 Dose: 1 applic Diphenhydramine HCl (Benadryl -) 25 mg PO Q6H PRN PRN Reason: FOR ITCHING Last Admin: 02/06/19 11:26 Dose: 25 mg Fenofibric Acid (Trilipix -) 135 mg PO DAILY [facility] Last Admin: 02/07/19 10:38 Dose: 135 mg Heparin Sodium (Porcine) (Heparin -) 5,000 unit SQ TID [facility] Last Admin: 02/08/19 06:14 Dose: 5,000 unit Insulin Human Regular 100 (units/ Sodium Chloride) 100 mls @ 14.62 mls/hr IVPB TITR LIONEL; Protocol Last Titration: 02/08/19 04:18 Dose: 0.02 units/kg/hr, 1.95 mls/hr Dextrose/Lactated Ringer's (D5-Lr -) 1,000 mls @ 75 mls/hr IV ASDIR [facility] Last Admin: 02/07/19 23:30 Dose: 75 mls/hr Mupirocin (Bactroban Ointment (For Decolonization) -) 1 applic NS BID [facility] Stop: 02/08/19 21:59 Last Admin: 02/08/19 10:06 Dose: 1 applic Nicotine (Nicoderm Patch -) 21 mg TD DAILY [facility] Last Admin: 02/08/19 10:06 Dose: 21 mg ASSESSMENT AND PLAN: Acute Pancreatitis Hypertriglyceridemia Diabetes Alcohol Use Anemia - continue fenofibrate - endo f/u - titrate off insulin gtt - PO as tolerated - IVF - DVT prophylaxis - can monitor on floor once off insulin gtt
[2019-02-08] MEDS: DEXTROSE 5%-LACTATED RINGERS 1,000 ML IV SCH (12:06)
[2019-02-08] MEDS ORDERED: INSULIN (LEVEMIR) 100 UNITS/ML UNITS SQ ONE (13:12)
--- NOTE | 2019-02-08 15:45 | PN.GI ---
GI Progress Note Subjective: Pt seen/examined at bedside, feeling well, tolerating diet. Denies n/v. Moving bowels. No complaints currently. - Objective Vital Signs: Vital Signs Temperature 98.1 F 02/08/19 14:00 Pulse Rate 70 02/08/19 14:00 Respiratory Rate 26 H 02/08/19 14:00 Blood Pressure 130/79 02/08/19 12:00 O2 Sat by Pulse Oximetry (%) 100 02/08/19 09:00 Constitutional: Well Nourished, No Distress, Calm Cardiovascular: Yes: WNL, Regular Rate and Rhythm Respiratory: Yes: WNL, Regular, CTA Bilaterally ...Palpate: Yes: Other (Abd soft, nt, nd) Labs: CBC, BMP 02/08/19 05:40 02/08/19 05:54 Problem List - Problems (1) Pancreatitis Assessment/Plan: 38 yo male h/o DM, ETOH abuse with pancreatitis. TG also markedly elevated. LFTs normal. Clinically improved, abdominal pain resolved. -Low fat diet as tolerated -Management of elevated TGs and DM per endocrinology -Strict etoh abstinence emphasized Code(s): K85.90 - ACUTE PANCREATITIS WITHOUT NECROSIS OR INFECTION, UNSP Qualifiers: Chronicity: acute Pancreatitis type: unspecified pancreatitis type Acute pancreatitis complication: no infection or necrosis Qualified Code(s): K85.90 - Acute pancreatitis without necrosis or infection, unspecified (2) Anemia Assessment/Plan: Microcytic anemia noted. No overt bleeding. Baseline unclear ?thalassemia. Recommend check iron studies/ferritin. Can follow up with GI as outpt for further management. Code(s): D64.9 - ANEMIA, UNSPECIFIED Qualifiers: Anemia type: unspecified type Qualified Code(s): D64.9 - Anemia, unspecified
--- NOTE | 2019-02-08 16:18 | PN ---
Progress Note (short form) - Note Progress Note: Feels good Denies any complaints No abd pain, No NV Vital Signs Period Temp Pulse Resp BP Sys/Dumont Pulse Ox Last 24 Hr 98.1 F-98.6 F 62-80 12-29 120-149/69-92 100-100 PE: AOx3 Neck: supple, No JVD HEENT: EOMI Neck: supple, No JVD Lungs: CTA CVs: s1s2 Abd: Benign Ext: No edema Neuro: No focal deficit CMP Sodium 143 mmol/L (136-145) 02/08/19 05:54 Potassium 3.5 mmol/L (3.5-5.1) 02/08/19 05:54 Chloride 109 mmol/L (98-107) H 02/08/19 05:54 Carbon Dioxide 26 mmol/L (21-32) 02/08/19 05:54 Anion Gap 8 MMOL/L (8-16) 02/08/19 05:54 BUN 5.8 mg/dL (7-18) L 02/08/19 05:54 Creatinine 0.7 mg/dL (0.55-1.3) 02/08/19 05:54 Est GFR (CKD-EPI)AfAm 140.71 02/08/19 05:54 Est GFR (CKD-EPI)NonAf 121.41 02/08/19 05:54 POC Glucometer 291 UNITS (80-120) 02/08/19 15:21 Random Glucose 122 mg/dL (74-106) H 02/08/19 05:54 Hemoglobin A1c % 15.7 % (4.2-6.3) H 02/05/19 05:20 Lactic Acid 1.7 mmol/L (0.4-2.0) 02/03/19 21:23 Calcium 8.3 mg/dL (8.5-10.1) L 02/08/19 05:54 Phosphorus 3.8 mg/dL (2.5-4.9) 02/04/19 05:53 Magnesium 1.7 mg/dL (1.8-2.4) L 02/04/19 05:53 Total Bilirubin 0.3 mg/dL (0.2-1) 02/08/19 05:54 Direct Bilirubin 0.1 mg/dL (0.0-0.2) 10/18/19 21:23 AST 28 U/L (15-37) 02/08/19 05:54 ALT 40 U/L (13-61) 02/08/19 05:54 Alkaline Phosphatase 69 U/L (45-117) 02/08/19 05:54 LD Total 160 U/L (87-246) 02/03/19 12:30 C-Reactive Protein 5.5 MG/DL (0.00-0.3) H 02/06/19 05:40 Total Protein 6.0 g/dl (6.4-8.2) L 02/08/19 05:54 Albumin 2.4 g/dl (3.4-5.0) L 02/08/19 05:54 Triglycerides 668 mg/dL (0-150) H 02/08/19 05:54 Cholesterol 321 mg/dL (50-200) H 02/08/19 05:54 Total LDL Cholesterol 154 mg/dL (5-100) H 02/08/19 05:54 HDL Cholesterol 27 mg/dL (40-60) L 02/08/19 05:54 Total Amylase 126 U/L (25-115) H 02/08/19 05:54 Lipase 157 U/L (73-393) 02/08/19 05:54 Beta-Hydroxybutyrate 26.3 mg/dL (0.2-2.8) H 02/03/19 12:30 Current Medications Generic Name Dose Route Start Last Admin Trade Name Freq PRN Reason Stop Dose Admin Acetaminophen 650 mg 02/07/19 15:09 Tylenol - PO Q6H PRN PAIN LEVEL 4 - 6 Chlorhexidine Gluconate 1 applic 02/03/19 22:00 02/07/19 21:42 Hibiclens For Decolonization - TP 1 applic HS [facility] Administration Diphenhydramine HCl 25 mg 02/06/19 11:17 02/06/19 11:26 Benadryl - PO 25 mg Q6H PRN Administration FOR ITCHING Fenofibric Acid 135 mg 02/05/19 10:00 02/08/19 11:00 Trilipix - PO 135 mg DAILY [facility] Administration Heparin Sodium (Porcine) 5,000 unit 02/03/19 22:00 02/08/19 06:14 Heparin - SQ 5,000 unit TID [facility] Administration Dextrose/Lactated Ringer's 1,000 mls @ 75 mls/hr 02/07/19 19:21 02/08/19 12: 06 D5-Lr - IV 75 mls/hr ASDIR [facility] Administration Insulin Aspart 1 vial 02/08/19 16:30 Novolog Vial Sliding Scale - SQ ACHS [facility] Protocol Insulin Detemir 15 units 02/08/19 22:00 Levemir Vial SQ HS [facility] Mupirocin 1 applic 02/03/19 22:00 02/08/19 10:06 Bactroban Ointment (For Decolonization) - NS 02/08/19 21:59 1 applic BID [facility] Administration Nicotine 21 mg 02/05/19 15:45 02/08/19 10:06 Nicoderm Patch - TD 21 mg DAILY [facility] Administration Uehli-6-Lcex Ethyl Esters 2 gm 02/08/19 22:00 Lovaza - PO BID [facility] AP: T2DM A1c 14.5 Hypertriglyceridemia Pancreatitis Off Insulin drip, Was on 3 units per hr. Levemir 15 units given, Scheduled for 15 units at HS Novolog SS coverage BGM QACHS and at 3 AM IV hydration, continue Ringer's lactate with D5 75ml/hr for now Fenofibrate 135mg QD Lovaza 2 gm BID Monitor Trig Nutrition consult Pt needs to be discharged on Insulin. He is able to self inject Insulin as he as done it in the past. Discussed with Housestaff.
[2019-02-08] MEDS: INSULIN SLIDING SCALE (NOVOLOG) 1 VIAL SQ SCH ×2 (17:45→21:42)
[2019-02-08] MEDS: CHLORHEXIDINE GLUCONATE 4% CLEANSER FOR DECOLONIZATION TP SCH (21:41)
[2019-02-08] MEDS: OMEGA-3 ACID ETHYL ESTERS (FATTY-ACIDS) 1 GM CAPSULE (FP) PO SCH (21:42)
--- NOTE | 2019-02-08 21:55 | PN ---
Progress Note, Physician - Current Medication List Current Medications: Active Medications Acetaminophen (Tylenol -) 650 mg PO Q6H PRN PRN Reason: PAIN LEVEL 4 - 6 Chlorhexidine Gluconate (Hibiclens For Decolonization -) 1 applic TP HS [facility] Last Admin: 02/08/19 21:41 Dose: 1 applic Diphenhydramine HCl (Benadryl -) 25 mg PO Q6H PRN PRN Reason: FOR ITCHING Last Admin: 02/06/19 11:26 Dose: 25 mg Fenofibric Acid (Trilipix -) 135 mg PO DAILY [facility] Last Admin: 02/08/19 11:00 Dose: 135 mg Heparin Sodium (Porcine) (Heparin -) 5,000 unit SQ TID [facility] Last Admin: 02/08/19 21:41 Dose: 5,000 unit Dextrose/Lactated Ringer's (D5-Lr -) 1,000 mls @ 75 mls/hr IV ASDIR [facility] Last Admin: 02/08/19 12:06 Dose: 75 mls/hr Insulin Aspart (Novolog Vial Sliding Scale -) 1 vial SQ [facility]; Protocol Last Admin: 02/08/19 21:42 Dose: 12 units Insulin Detemir (Levemir Vial) 15 units SQ HS [facility] Last Admin: 02/08/19 21:41 Dose: 15 units Mupirocin (Bactroban Ointment (For Decolonization) -) 1 applic NS BID [facility] Stop: 02/08/19 21:59 Last Admin: 02/08/19 10:06 Dose: 1 applic Nicotine (Nicoderm Patch -) 21 mg TD DAILY [facility] Last Admin: 02/08/19 10:06 Dose: 21 mg Dibtx-8-Lcyr Ethyl Esters (Lovaza -) 2 gm PO BID [facility] Last Admin: 02/08/19 21:42 Dose: 2 gm - Objective Vital Signs: Vital Signs Temperature 98.2 F 02/08/19 17:46 Pulse Rate 72 02/08/19 17:46 Respiratory Rate 26 H 02/08/19 17:46 Blood Pressure 128/80 02/08/19 17:46 O2 Sat by Pulse Oximetry (%) 100 02/08/19 20:48 Labs: CBC, BMP 02/08/19 05:40 02/08/19 05:54 Problem List - Problems (1) Pancreatitis Code(s): K85.90 - ACUTE PANCREATITIS WITHOUT NECROSIS OR INFECTION, UNSP Qualifiers: Chronicity: acute Pancreatitis type: unspecified pancreatitis type Acute pancreatitis complication: no infection or necrosis Qualified Code(s): K85.90 - Acute pancreatitis without necrosis or infection, unspecified (2) Uncontrolled diabetes mellitus Code(s): E11.65 - TYPE 2 DIABETES MELLITUS WITH HYPERGLYCEMIA (3) Elevated triglycerides with high cholesterol Code(s): E78.2 - MIXED HYPERLIPIDEMIA
[2019-02-08] MEDS ORDERED: INSULIN (LEVEMIR) 100 UNITS/ML UNITS SQ SCH (22:00)
[2019-02-09] MEDS: HEPARIN NA (PORCINE) 5,000 UNITS/ML 1ML VIAL SQ SCH (06:12)
[2019-02-09] MEDS: INSULIN SLIDING SCALE (NOVOLOG) 1 VIAL SQ SCH ×2 (06:15→11:18)
--- NOTE | 2019-02-09 07:55 | PN ---
Physical Exam: SUBJECTIVE: Patient seen and examined at bedside. Has no complaints overnight. States he would like to be discharged today and overnight has expressed his desire to sign out AMA today but would prefer to be properly discharged. OBJECTIVE: Vital Signs Period Temp Pulse Resp BP Sys/Dumont Pulse Ox Last 24 Hr 98.1 F-98.6 F 65-80 16-29 120-157/69-90 100-100 GENERAL: The patient is awake, alert, and fully oriented, in no acute distress. HEAD: Normal with no signs of trauma. EYES: PERRL, EOMI, no scleral icterus. No ptosis ENT: Ears normal, nares patent, oropharynx clear without exudates, moist mucous membranes. NECK: Trachea midline, full range of motion, supple. LUNGS: Breath sounds equal, clear to auscultation bilaterally, no wheezes, no crackles, no accessory muscle use. HEART: Regular rate and rhythm, S1, S2 without murmur, rub or gallop. ABDOMEN: Soft, nontender, nondistended, normoactive bowel sounds, no guarding, no rebound, no hepatosplenomegaly, no masses. EXTREMITIES: 2+ pulses, warm, well-perfused, no edema. NEUROLOGICAL: Normal speech, gait no observed. 5/5 strength upper and lower extremities. Grossly normal sensation. PSYCH: Normal mood, normal affect. SKIN: Warm, dry, normal turgor, no rashes or lesions noted Laboratory Results - last 24 hr 02/08/19 02/08/19 02/08/19 05:40 08:37 10:04 WBC 5.0 RBC 4.24 Hgb 9.8 L Hct 30.5 L MCV 71.9 L MCH 23.2 L MCHC 32.2 RDW 17.3 H Plt Count 308 MPV 8.4 Absolute Neuts (auto) 2.9 Neutrophils % 59.2 Lymphocytes % 25.6 Monocytes % 10.7 H Eosinophils % 3.6 Basophils % 0.9 Nucleated RBC % 0 POC Glucometer 113 268 Triglycerides 02/08/19 02/08/19 02/08/19 12:11 13:50 15:21 WBC RBC Hgb Hct MCV MCH MCHC RDW Plt Count MPV Absolute Neuts (auto) Neutrophils % Lymphocytes % Monocytes % Eosinophils % Basophils % Nucleated RBC % POC Glucometer 348 307 291 Triglycerides 02/08/19 02/08/1919 17:43 21:31 23:23 WBC RBC Hgb Hct MCV MCH MCHC RDW Plt Count MPV Absolute Neuts (auto) Neutrophils % Lymphocytes % Monocytes % Eosinophils % Basophils % Nucleated RBC % POC Glucometer 321 427 307 Triglycerides 02/09/19 02/09/19 02/09/19 03:13 06:00 06:09 WBC RBC Hgb Hct MCV MCH MCHC RDW Plt Count MPV Absolute Neuts (auto) Neutrophils % Lymphocytes % Monocytes % Eosinophils % Basophils % Nucleated RBC % POC Glucometer 244 237 Triglycerides 519 H Active Medications Generic Name Dose Route Start Last Admin Trade Name Freq PRN Reason Stop Dose Admin Acetaminophen 650 mg 02/07/19 15:09 Tylenol - PO Q6H PRN PAIN LEVEL 4 - 6 Chlorhexidine Gluconate 1 applic 02/03/19 22:00 02/08/19 21:41 Hibiclens For Decolonization - TP 1 applic HS [facility] Administration Diphenhydramine HCl 25 mg 02/06/19 11:17 02/06/19 11:26 Benadryl - PO 25 mg Q6H PRN Administration FOR ITCHING Fenofibric Acid 135 mg 02/05/19 10:00 02/08/19 11:00 Trilipix - PO 135 mg DAILY [facility] Administration Heparin Sodium (Porcine) 5,000 unit 02/03/19 22:00 02/09/19 06:12 Heparin - SQ 5,000 unit TID [facility] Administration Dextrose/Lactated Ringer's 1,000 mls @ 75 mls/hr 02/07/19 19:21 02/08/19 12: 06 D5-Lr - IV 75 mls/hr ASDIR [facility] Administration Insulin Aspart 1 vial 02/08/19 16:30 02/09/19 06:15 Novolog Vial Sliding Scale - SQ 4 units ACHS [facility] Administration Protocol Insulin Detemir 15 units 02/08/19 22:00 02/08/19 21:41 Levemir Vial SQ 15 units HS [facility] Administration Nicotine 21 mg 02/05/19 15:45 02/08/19 10:06 Nicoderm Patch - TD 21 mg DAILY [facility] Administration Oibox-0-Mwxf Ethyl Esters 2 gm 02/08/19 22:00 02/08/19 21:42 Lovaza - PO 2 gm BID [facility] Administration ASSESSMENT/PLAN: 38 y/o/m with PMH significant for DMII, alcohol abuse, & pancreatitis who presented to the ER with complaints of 1 week of epigastric pain. He was found to have Triglycerides >4000 and was found to have evidence of pancreatitis on CT AP. TG have been downtrending and is now at 519. #Endocrine - Blood glucose at 237 on last fingerstick. - Consulted with Dr. Bonilla. Recommended discontinuing D5LR and seeing how glucose levels respond before deciding on an insulin regimen to send the patient home on. Stated that patient can resume Metformin upon discharge. - Insulin drip discontinued. Levemir 15 given stat once yesterday and started on Levemir 15 HS. Novolog sliding scale, Lovaza 2 gm BID. #GI - TG downtrending from 1241 -> 668 -> 519 - Continue Finofibric acid 135 mg PO OD - Low fat/cholesterol diet. #Skin - Benadryl 25mg PO Q6H #FEN - Low fat/cholesterol diet - D5LR discontinued. #DVT PE - Heparin 5000SQ #Code Status - Full code #Dispo - Pending transfer to med/surg - May be discharged as per primary team Visit type - Emergency Visit Emergency Visit: Yes ED Registration Date: 02/03/19 Care time: The patient presented to the Emergency Department on the above date and was hospitalized for further evaluation of their emergent condition. - New Patient This patient is new to me today: No - Critical Care Critical Care patient: Yes Total Critical Care Time (in minutes): 36 Critical Care Statement: The care of this patient involved high complexity decision making to prevent further life threatening deterioration of the patient 's condition and/or to evaluate & treat vital organ system(s) failure or risk of failure. ATTENDING PHYSICIAN STATEMENT I saw and evaluated the patient. I reviewed the resident's note and discussed the case with the resident. I agree with the resident's findings and plan as documented. SUBJECTIVE: OBJECTIVE: ASSESSMENT AND PLAN:
[2019-02-09] MEDS ORDERED: PT OWN MED DRAWER 7, Y5N ONE (09:16)
[2019-02-09] MEDS: FENOFIBRIC ACID 135 MG CAP PO SCH (09:17)
[2019-02-09] MEDS: NICOTINE 21 MG/24 HOURS TOPICAL PATCH TD SCH (09:17)
[2019-02-09] MEDS: OMEGA-3 ACID ETHYL ESTERS (FATTY-ACIDS) 1 GM CAPSULE (FP) PO SCH (09:17)
[2019-02-09 09:52] VITALS: BP 129/76; PULSE 74
[2019-02-09 10:18] VITALS: TEMP 98.2
--- NOTE | 2019-02-09 11:11 | PN ---
Teaching Attending Note Name of Resident: Balbir Hatfield ATTENDING PHYSICIAN STATEMENT I saw and evaluated the patient. I reviewed the resident's note and discussed the case with the resident. I agree with the resident's findings and plan as documented. SUBJECTIVE: Patient seen and examined in the ICU. Remains off insulin drip. Feels overall better. Tolerating PO intake. Intake & Output 02/06/19 02/07/19 02/08/19 02/09/19 23:59 23:59 23:59 23:59 Intake Total 2482 2769 1458 Balance 2482 2769 1458 Weight 216 lb 1.6 oz 211 lb 1.6 oz 211 lb 1.6 oz Last Vital Signs Temp Pulse Resp BP Pulse Ox 98.2 F 74 18 129/76 100 02/09/19 10:00 02/09/19 08:00 02/09/19 09:00 02/09/19 08:00 02/09/19 09:00 Active Medications Acetaminophen (Tylenol -) 650 mg PO Q6H PRN PRN Reason: PAIN LEVEL 4 - 6 Chlorhexidine Gluconate (Hibiclens For Decolonization -) 1 applic TP HS [facility] Last Admin: 02/08/19 21:41 Dose: 1 applic Diphenhydramine HCl (Benadryl -) 25 mg PO Q6H PRN PRN Reason: FOR ITCHING Last Admin: 02/06/19 11:26 Dose: 25 mg Fenofibric Acid (Trilipix -) 135 mg PO DAILY [facility] Last Admin: 02/09/19 09:17 Dose: 135 mg Heparin Sodium (Porcine) (Heparin -) 5,000 unit SQ TID [facility] Last Admin: 02/09/19 06:12 Dose: 5,000 unit Dextrose/Lactated Ringer's (D5-Lr -) 1,000 mls @ 75 mls/hr IV ASDIR [facility] Last Admin: 02/08/19 12:06 Dose: 75 mls/hr Insulin Aspart (Novolog Vial Sliding Scale -) 1 vial SQ ACHS [facility]; Protocol Last Admin: 02/09/19 06:15 Dose: 4 units Insulin Detemir (Levemir Vial) 15 units SQ HS [facility] Last Admin: 02/08/19 21:41 Dose: 15 units Nicotine (Nicoderm Patch -) 21 mg TD DAILY [facility] Last Admin: 02/09/19 09:17 Dose: 21 mg Bldvo-7-Mwhh Ethyl Esters (Lovaza -) 2 gm PO BID [facility] Last Admin: 02/09/19 09:17 Dose: 2 gm Gen: NAD at rest Heart: RRR Lung: Clear Abd: soft, nontender Ext: no edema Laboratory Results - last 24 hr 02/08/19 02/08/19 02/08/19 12:11 13:50 15:21 POC Glucometer 348 307 291 Triglycerides 02/08/19 02/08/19 02/08/19 17:43 21:31 23:23 POC Glucometer 321 427 307 Triglycerides 02/09/19 02/09/19 02/09/19 03:13 06:00 06:09 POC Glucometer 244 237 Triglycerides 519 H ASSESSMENT AND PLAN: Acute Pancreatitis Hypertriglyceridemia Diabetes Alcohol Use Anemia - Fenofibrate - SQ insulin per Endocrine - PO as tolerated - DC planning Dr Franklin
== END 2019-02-09 12:50 | disposition home or self-care (01) | DRG 282 ==
LOC: JER 09:51 → JERBED 14:26 → JICU 21:21
PROVIDERS: ADMIT Internal Medicine; ATTEND Internal Medicine
DX: K85.90 Acute pancreatitis without necrosis or infection, unspecified (principal); E78.2 Mixed hyperlipidemia; E87.1 Hypo-osmolality and hyponatremia; E11.65 Type 2 diabetes mellitus with hyperglycemia; D64.9 Anemia, unspecified; F10.10 Alcohol abuse, uncomplicated
CPT/HCPCS: 36415; 74176-TC; 76700-TC; 80048; 80053; 80061; 80076; 81003; 82010; 82150; 82803; 82962; 83036; 83605; 83615; 83690; 83721; 83735; 84100; 84478; 85025; 86140; 86704; 86706; 86707; 86708; 86709; 86803; 86850; 86900; 86901; 87340; 93005; 93010; 99284-25; J0131; J1644; J7030